=== PATIENT | male | born 1945 | race Caucasian/White ===

== ENCOUNTER → 2017-07-30 | Outpatient (CLI) | payer MEDICARE, OTHER ==
[~2017-07-30] MED LIST: AMIO200T51 PO; AMLO-99 PO; AMOX500T10 PO; CIPR-344 PO; FOLI-68 PO; HYDR-2963 PO; HYDR1TAB98 PO; LOSA50TA72 PO; METO200T12 PO; METO200T33 PO; NAPR-1043 PO; OLME1TAB73 PO; OXY10 PO; PRED20TA6 PO; RABE20TA33 PO; RIV10 PO; VITA-175 PO; VITAMIN B 12 PO; VITAMIN B 6 PO; WARF2.5T62 PO; WARF5TAB23 PO; [UNRECOGNIZED DRUG - OTHER] PO
== END ==
LOC: LAB 13:40
PROVIDERS: ATTEND Internal Medicine Cardiovascular Disease
DX: I48.91 Unspecified atrial fibrillation (principal)
CPT/HCPCS: 36415; 82040; 82247; 82248; 84075; 84155; 84439; 84443; 84450; 84460

== ENCOUNTER → 2017-08-05 | Outpatient (CLI) | payer MEDICARE, OTHER | LOC: RESP 03:03 | PROVIDERS: ATTEND Internal Medicine Cardiovascular Disease | DX: I48.91 Unspecified atrial fibrillation (principal) | CPT/HCPCS: 94060; 94726; 94729 ==

== ENCOUNTER → 2017-09-09 | Outpatient (CLI) | payer MEDICARE, OTHER | LOC: SPU 10:22 | PROVIDERS: ATTEND Internal Medicine Cardiovascular Disease | DX: R94.5 Abnormal results of liver function studies (principal); Z79.899 Other long term (current) drug therapy | CPT/HCPCS: 82040; 82247; 82248; 84075; 84155; 84450; 84460 ==

== ENCOUNTER 2017-09-11 08:20 | Outpatient (RCR) | payer MEDICARE, OTHER ==
[2017-09-09 10:20] VITALS: BP 124/87
[2017-09-09 10:38] LABS: PLATELET COUNT, AUTOMATED 243 K/uL (150-450)
[2017-09-11 08:27] VITALS: BP 151/82
--- NOTE | 2017-09-11 18:37 | ONCOLOGY FOLLOW UP NOTE ---
EVENT DATE: September 11, 2017 DIAGNOSES 1. 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 5. Rhus-like rash over the dorsum of the feet. 6. Atrial fibrillation. 7. Hypertension. CHIEF COMPLAINT Patient is here today for followup of his hypercoagulable state. HEMATOLOGY HISTORY Mr. Kirill Clancy is a 70-year-old male, who was diagnosed in February 2013 with cerebral central venous thrombosis, required thrombectomy which was done in [place] on 09 March 2014. Since then, the patient has been maintained on anticoagulation, initially with Lovenox and switched to Coumadin after that. He is currently on 2.5 mg daily of Coumadin, and as per the patient with a therapeutic INR. There is no documentation of thrombophilia workup, but there are some reports of the patient having a homozygous state from methylenetetrahydrofolate reductase mutation, and hyper-homocystinemia in the past, but he was not receiving any vitamin supplement to correct that. His CBC on 26 January 2014, showed white count 6500, hemoglobin 19, hematocrit 56.3%, platelet 220,000. Fibrinogen level was high at 683. Thrombin time, antithrombin 3 were normal. Factor VIII activity was mildly elevated at 255. Homocystine is high at 19. Erythropoietin was normal at 13. Methylenetetrahydrofolate reductase mutation did reveal the presence of compound heterozygous state for C677T and [id number] mutations. Serum protein electrophoresis was normal. Anticardiolipin antibodies, beta-2 lipoprotein antibodies and lupus anticoagulant were normal. Prothrombin gene mutation was negative and factor V Leiden mutation was also negative. Serum protein electrophoresis showed normal pattern. JAK2 mutation analysis for V617F and exon 12 mutations were negative. HISTORY OF PRESENT ILLNESS Patient is here today for followup of his hypercoagulable state and secondary erythrocytosis. He is doing fine currently, and he is totally asymptomatic. PAST MEDICAL HISTORY 1. Atrial fibrillation. 2. Cerebral central venous thrombosis status post thrombectomy February 2013. 3. Arthritis. 4. Gout. 5. Hypercholesterolemia. 6. Hypertension. PAST SURGICAL HISTORY 1. Knee replacement in October 2011. 2. Thrombectomy of the cerebral central venous thrombosis done on 09 March 2013. SOCIAL HISTORY The patient is . He has 2 daughters. He is a rancher. He was a [place] . Denies any abuse of tobacco or drugs. He never smoked in the past. FAMILY HISTORY Maternal grandmother had breast cancer at the age of 75. His sister had pulmonary embolism in her 50s. CURRENT MEDICATIONS 1. Vitamin B6 at 50 mg three times daily.. 2. Vitamin B12 at 1000 mcg daily. 3. Folic acid 5 mg daily. 4. Amiodarone 200 mg daily. 5. Warfarin 2.5 mg daily. 6. Metoprolol 200 mg once daily. 7. Losartan 50 mg daily. 8. Hydrochlorothiazide 50 mg daily. 9. Amlodipine 10 mg daily. ALLERGIES No known drug allergies. REVIEW OF SYSTEMS CONSTITUTIONAL: No appetite or weight change. No fever, chills or sweating. No recent infection. HEENT: Ears: No tinnitus or hearing problem. Nose: No nasal discharge or epistaxis. Throat: No sore throat or mouth ulcers. Eyes: No diplopia or visual changes. RESPIRATORY: No shortness of breath. No cough, expectoration or hemoptysis. CARDIOVASCULAR: No chest pain, orthopnea, or paroxysmal nocturnal dyspnea (PND) . No edema. No palpitations. GASTROINTESTINAL: No nausea or vomiting. No diarrhea or constipation. No change in bowel movements. No heartburn or swallowing difficulties. No abdominal pain. No jaundice. No hematemesis, melena or rectal bleeding. GENITOURINARY: No hematuria or dysuria. MUSCULOSKELETAL: No pain in the muscles, joints or bones. NEUROLOGICAL: No tingling or numbness in the hands or feet. No headaches or convulsions. HEMATOLOGIC/LYMPHATIC: No bleeding or easy bruising. No weakness or fatigue. No enlarged lymph nodes. SKIN: No skin rash or lumps. PSYCHIATRIC: No anxiety or depression. PHYSICAL EXAMINATION GENERAL: Looks stable. Well-developed, well-nourished, and in no acute distress. VITAL SIGNS: Blood pressure 151/82, pulse 63 per minute, respirations 16 per minute, temperature 97, pulse ox 92% on room air. HEENT: Head: Atraumatic. No sinus tenderness to palpation. Eyes: No icterus or conjunctivitis. Mouth and throat: No oral thrush or mucositis. NECK: Supple. No cervical or supraclavicular lymphadenopathy. LUNGS: Clear to auscultation and percussion bilaterally. HEART: Regular rate and rhythm. No gallops, murmurs, clicks or rubs. ABDOMEN: Soft and lax. No tenderness. No hepatosplenomegaly. No masses. EXTREMITIES: No cyanosis, clubbing or edema. LYMPHATICS: No peripheral lymphadenopathy. NEUROLOGICAL: Conscious, alert and oriented times three. No focal motor or sensory deficits. PSYCHIATRIC: Mood and affect appear normal. SKIN: No skin rash, bruise or purpuric eruption. DIAGNOSTIC DATA CBC showed a white count of 6.1 hemoglobin 18.4, hematocrit 52.4, platelets 243, 000. Homocysteine level is stable at 12. ASSESSMENT 1. Cerebral central venous thrombosis. Thrombophilia came back normal except for compound heterozygous state for methylenetetrahydrofolate reductase mutation with C677T and C3256R mutations. Homocysteine level was high at 19. With vitamin supplement it dropped from 19, and currently it is 12 with supplementation of folic acid, B6 and B12 vitamins. Patient is doing fine currently and he denies any recent blood clotting. 2. 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 Will continue vitamin supplementation with folic acid, B6 and B12. 3. Homocystinemia, responding to supplementation with folic acid, B6 and B12. His initial homocysteine level was 19, and currently it is 12. I am planning to continue folic acid 5 mg daily, vitamin B6 100 mg twice daily and vitamin B12 1000 mcg twice daily. I will check his homocysteine level again in six months. 4. Secondary erythrocytosis with negative JAK2 mutation for V617F mutation and Exon 12 mutation, and the erythropoietin level was normal at 13. Current hematocrit 52.4%. No indication for phlebotomy. I will proceed with phlebotomy if the hematocrit is above 55%. We will repeat his CBC in six months. 5. Atrial fibrillation on treatment. 6. Hypertension on treatment. PLAN 1. Folic acid 5 mg daily. 2. Vitamin B6 100 mg twice daily. 3. B12 1000 mcg daily. 4. Patient to return in six months with CBC and fasting homocysteine. 5. Consider phlebotomy if the hematocrit is above 55%. 6. Patient is to contact us for any new concerns or complaints. [facility]
== END 2017-10-15 13:16 | disposition home or self-care (01) ==
LOC: ONC 08:20
PROVIDERS: ATTEND Internal Medicine Hematology
DX: I66.8 Occlusion and stenosis of other cerebral arteries (principal); E72.12 Methylenetetrahydrofolate reductase deficiency; E72.11 Homocystinuria; D75.1 Secondary polycythemia; I48.91 Unspecified atrial fibrillation; I10 Essential (primary) hypertension; Z79.01 Long term (current) use of anticoagulants; Z79.899 Other long term (current) drug therapy
CPT/HCPCS: 36415; 83090; 85025; G0463; 99212

== ENCOUNTER 2018-06-07 13:24 | Emergency (ER) | payer MEDICARE, OTHER ==
[~2018-06-07 13:24] MED LIST changes: +AMLO-127 PO; -AMLO-99 PO; -LOSA50TA72 PO; +LOSA50TA80 PO
--- NOTE | 2018-06-07 13:33 | ER Report ---
History and Physical Time Seen By MD: 13:32 HPI/ROS CHIEF COMPLAINT: Left heel pain HISTORY OF PRESENT ILLNESS: Patient is a 73-year-old male here with complaints of left hip pain after tripping on a step several days ago. Patient denied pain at that time however he reports significant heel pain at this time. Patient is able to bear weight but does have pain with ambulation. Patient is neurovascularly intact with no obvious signs of deformity. REVIEW OF SYSTEMS: Constitutional: No fever, no chills. Musculoskeletal: Left heel pain Skin: No rashes. Neurological: Neurovascular exam intact Allergies: Coded Allergies: promethazine (Verified Adverse Reaction, Intermediate, Hallucinations, 06/07/18) pt reported Home Meds Active Scripts Tramadol Hcl (TRAMADOL HCL) 50 Mg Tablet, 50 MG PO Q6H PRN for PAIN, #12 TAB 0 Refills Prov:GEORGES STRONG DO 06/07/18 Folic Acid (FOLIC ACID) 1 Mg Tablet, 5 MG PO QDAY, #180 TAB 9 Refills Prov:DEBBY BELLO [employer]MENT SUPERVISOR-BC, ONC 02/14/17 Reported Medications Warfarin Sodium (WARFARIN SODIUM) 5 Mg Tablet, 1.25 MG PO RICE, M, W, TH, F, TAB 12/03/16 Warfarin Sodium (WARFARIN SODIUM) 5 Mg Tablet, 2.5 MG PO TUE, SAT, TAB 12/03/16 [Vitamin B 12] No Conflict Check, 1000 MG PO DAILY 02/29/16 [Vitamin B 6] No Conflict Check, 50 MG PO BID 02/29/16 Amiodarone Hcl (PACERONE) 200 Mg Tablet, 200 MG PO DAILY 03/11/14 Metoprolol Succ 200 Mg Xl Tab (METOPROLOL SUCCINATE 200 MG) 200 Mg Tab.er.24h, 1 TAB PO QDAY, TAB 03/11/14 Losartan Potassium (LOSARTAN POTASSIUM) 50 Mg Tablet, 50 MG PO QDAY 03/11/14 Hydrochlorothiazide (HYDROCHLOROTHIAZIDE) 50 Mg Tablet, 1 TAB PO QDAY TAKE ONE TABLET BY MOUTH EVERY DAY 03/11/14 Amlodipine Besylate (AMLODIPINE BESYLATE) 10 Mg Tablet, 1 TAB PO QDAY, TAB TAKE ONE TABLET BY MOUTH EVERY DAY 03/11/14 Discontinued Scripts Prednisone (PREDNISONE) 20 Mg Tablet, 20 MG PO BID, #14 TAB Prov:LETICIA TINOCO PA-C 12/03/16 Constitutional Vital Sign - Last 24 Hours 06/07/18 06/07/18 06/07/18 06/07/18 13:30 13:30 14:24 14:50 Temp 99.1 Pulse 65 63 62 Resp 16 18 B/P (MAP) 150/74 150/74 (99) 151/72 (98) Pulse Ox 83 93 94 O2 Delivery Room Air Nasal Cannula Physical Exam General Appearance: The patient is alert, has no immediate need for airway protection and no signs of toxicity. No acute distress Neurological: Neurovascular exam intact Skin: Warm and dry, no rashes. Mild ecchymosis of the left heel Musculoskeletal: Left heel ecchymosis and tenderness on examination with mild edema DIFFERENTIAL DIAGNOSIS: After history and physical exam differential diagnosis was considered for contusion, fracture, sprain, tendon injury Medical Decision Making EKG/Imaging Imaging Location: [facility] [place] Patient: Kirill Clancy : 1945 Visit/Account:[id number] Date of Sevice: 06/07/2018 INDICATION: left heel pain. DATE: 06/07/2018 2:09 PM. TECHNIQUE: ANKLE 3 VIEW MIN LEFT COMPARISON: None FINDINGS: Irregularity at the tip of the lateral malleolus appears well- corticated and probably as a result of an old injury, but there does appear to be mild circumferential edema at the ankle. IMPRESSION: Irregularity at the tip of the lateral malleolus is favored to be the sequelae of old injury, but correlate with site of pain. ED Course/Re-evaluation ED Course Patient is a 73-year-old male here after tripping up a step several days ago. Patient reports having increased left heel pain on ambulation. X-ray imaging showed no acute fracture at the site of maximum tenderness but rather a likely old fracture of the lateral malleolus. Ankle joint and foot were stable, neurovascular exam was intact. Patient was placed in a heel brace and Law wrap for stability and patient was advised to rest, ice, take [id number] analgesics and use crutches as needed. Patient was advised to follow-up with orthopedics if injury is not improving after one week. Return precautions provided Decision to Disposition Date: Jun 07, 2018 Decision to Disposition Time: 14:36 Depart Departure Latest Vital Signs Vital Signs Date Time Temp Pulse Resp B/P (MAP) Pulse Ox O2 Delivery O2 Flow Rate FiO2 06/07/18 14:50 62 18 151/72 (98) 94 Nasal Cannula 06/07/18 13:30 99.1 Impression: Primary Impression: PAIN IN LEFT ANKLE AND JOINTS OF LEFT FOOT Condition: Improved Disposition: HOME OR SELF-CARE Referrals: ROCIO CIFUENTES DO (PCP) New Scripts Tramadol Hcl (TRAMADOL HCL) 50 Mg Tablet 50 MG PO Q6H PRN for PAIN, #12 TAB 0 Refills Prov: GEORGES STRONG DO 06/07/18 Patient Instructions: Swollen Ankle Joint (ED) Additional Instructions: Please drink plenty of water. You may take Tylenol not to exceed 3 g daily, 1 tramadol every 6-8 hours as needed for breakthrough pain control. Please return promptly if you develop increased swelling, increased pain, redness around the site, fevers, inability to bear weight on the joint. Please follow-up with your family doctor in the next week. GEORGES STRONG DO Jun 07, 2018 13:33
--- NOTE | 2018-06-07 14:17 | RADIOLOGY IMAGING REPORT ---
FACILITY: [facility] - [place] PATIENT NAME: Kirill Clancy : 1945 MR: [id number] V: [id number] EXAM DATE: ORDERING PHYSICIAN: GEORGES STRONG TECHNOLOGIST: Location: [facility] - [place] Patient: Kirill Clancy : 1945 Visit/Account:[id number] Date of Sevice: 06/07/2018 INDICATION: left heel pain. DATE: 06/07/2018 2:09 PM. TECHNIQUE: ANKLE 3 VIEW MIN LEFT COMPARISON: None FINDINGS: Irregularity at the tip of the lateral malleolus appears well-corticated and probably as a result of an old injury, but there does appear to be mild circumferential edema at the ankle. IMPRESSION: Irregularity at the tip of the lateral malleolus is favored to be the sequelae of old injury, but cor relate with site of pain. Report Dictated By: Terry Arriola MD at 06/07/2018 2:09 PM Report E-Signed By: Terry Arriola MD at 06/07/2018 2:13 PM WSN:[id number]
[2018-06-07] MEDS ORDERED: TRAM-420 PO (14:38)
[2018-06-07 14:50] VITALS: BP 151/72
== END 2018-06-07 14:51 | disposition home or self-care (01) ==
LOC: ER 13:42
DX: M79.672 Pain in left foot (principal)
CPT/HCPCS: 99283

== ENCOUNTER → 2018-08-10 | Outpatient (CLI) | payer MEDICARE, OTHER ==
[~2018-08-10] MED LIST changes: +TRAM-420 PO
--- NOTE | 2018-08-10 13:58 | RADIOLOGY IMAGING REPORT ---
FACILITY: [facility] PATIENT NAME: Kirill Clancy : 1945 MR: [id number] V: [id number] EXAM DATE: ORDERING PHYSICIAN: NINOSKA ARIAS TECHNOLOGIST: Location: [facility] Patient: Kirill Clancy : 1945 Visit/Account:[id number] Date of Sevice: 08/10/2018 ADDENDUM #1 ADDENDUM: I discussed this case with the referring clinician. There is no ultrasound evidence of a parathyroid adenoma within the soft tissues surrounding the thyroid gland. Report Dictated By: Kamari Farrell at 08/10/2018 3:38 PM Report E-Signed By: Kamari Farrell at 08/10/2018 3:39 PM ORIGINAL REPORT EXAMINATION: Ultrasound thyroid HISTORY: Hyperparathyroidism. COMPARISON: None. FINDINGS: Thyroid size: Right lobe: 4.8 x 1.7 x 1.7 cm Left lobe: 4.4 x 1.4 x 2.2 cm Isthmus: 4 mm Thyroid heterogeneity: Homogeneous parenchyma. Thyroid vascularity: Normal. Thyroid nodules: Right lobe: * 6 mm x 4 mm x 5 mm hypoechoic nodule is seen superiorly * 8mm x 5 mm x 9 mm oval-shaped hypoechoic nodule is seen inferomedially Left lobe: * None discrete. Isthmus: * None discrete. Additional findings: None. IMPRESSION: 1. Subcentimeter hypoechoic right thyroid nodules. These do not meet current criteria for fine-need le aspiration according to the [place] [employer] Association guidelines. REFERENCE: 2015 [place] [employer] Management Guidelines for Adult Patients with Thyroid Nodules and D ifferentiated Thyroid Cancer: The [place] [employer] Guidelines Task Force on Thyroid Nodul es and Differentiated Thyroid Cancer. SONOGRAPHIC PATTERNS: * Benign: Purely cystic nodules (no solid component); estimated risk of malignancy <1 percent; no bi opsy recommended. * Very Low Suspicion: Spongiform or partially cystic nodules without any of the sonographic features described in low, intermediate, or high suspicion patterns; estimated risk of malignancy <3 percent; consider FNA at > 2 cm (Observation without FNA is also a reasonable option). * Low Suspicion: Isoechoic or hyperechoic solid nodule, or partially cystic nodule with eccentric so lid areas, without microcalcification, irregular margin or ETE (extra-thyroidal extension), or taller than wide shape; estimated risk of malignancy 5-10 percent; recommend FNA at >1.5 cm. * Intermediate Suspicion: Hypoechoic solid nodule with smooth margins without microcalcifications, E TE (extra-thyroidal extension), or taller than wide shape; estimated risk of malignancy 10-20 percent ; recommend FNA at > 1 cm. * High Suspicion: Solid hypoechoic nodule or solid hypoechoic component of a partially cystic nodule with one or more of the following features: irregular margins (infiltrative, microlobulated), microc alcifications, taller than wide shape, rim calcifications with small extrusive soft tissue component, evidence of ETE (extra-thyroidal extension); estimated risk of malignancy >70-90 percent; recommend FNA at > 1 cm. NOTES: * Although a sonographically suspicious subcentimeter thyroid nodule without evidence of extrathyroi juan extension or sonographically suspicious lymph nodes may be observed with close sonographic follow -up rather than pursuing immediate FNA, patient age and preference may modify decision-making. A > 50% interval increase in nodule volume and/or development of new suspicious sonographic features are felt to be a valid reasons for potential re-aspiration of a nodule previously shown to have benig n FNA cytology. Report Dictated By: Kamari Farrell at 08/10/2018 1:49 PM Report E-Signed By: Kamari Farrell at 08/10/2018 1:54 PM WSN:[id number]
== END ==
LOC: US 01:20
PROVIDERS: ATTEND Otolaryngology
DX: E04.2 Nontoxic multinodular goiter (principal)
CPT/HCPCS: 76536

== ENCOUNTER → 2018-08-11 | Outpatient (CLI) | payer MEDICARE, OTHER ==
--- NOTE | 2018-08-11 13:56 | RADIOLOGY IMAGING REPORT ---
FACILITY: [facility] - [place] PATIENT NAME: Kirill Clancy : 1945 MR: [id number] V: [id number] EXAM DATE: ORDERING PHYSICIAN: NINOSKA ARIAS TECHNOLOGIST: Location: [facility] - [place] Patient: Kirill Clancy : 1945 Visit/Account:[id number] Date of Sevice: 08/11/2018 Examination: Nuclear Medicine Parathyroid Scan Comparison: Ultrasound 08/10/2018. History: hyperparathyroidism Procedure: 25.1 mCi technetium 99m Sestamibi was injected intravenously. Multiplanar Gamma camera im ages were obtained of the head, neck and chest at 15 minutes and 3 hours following radiotracer admini stration with additional SPECT imaging at 3 hours. FINDINGS: 15 minute images: Physiologic tracer distribution throughout the salivary glands, thyroid, and visua lized thorax. Small focus of increased tracer activity in the midline neck at the level of the inferi or thyroid; this appears to be located anteriorly and is favored to be intravascular. Localization to a soft tissue nodule is considered less likely. 3 hour images: Normal physiologic tracer washout. No suspicious site of tracer activity. IMPRESSION: No scintigraphic findings of a parathyroid adenoma. Report Dictated By: Phil Vega MD at 08/11/2018 1:21 PM Report E-Signed By: Phil Vega MD at 08/11/2018 1:52 PM WSN:[id number]
== END ==
LOC: NUC 00:29
PROVIDERS: ATTEND Otolaryngology
DX: E21.3 Hyperparathyroidism, unspecified (principal)
CPT/HCPCS: 78070; A9500

== ENCOUNTER → 2018-09-01 | Outpatient (CLI) | payer MEDICARE, OTHER ==
[2018-09-01 12:45] LABS: PLATELET COUNT, AUTOMATED 262 K/uL (150-450)
--- NOTE | 2018-09-01 12:55 | EKG ---
FACILITY: [facility] - [place] PATIENT NAME: MERON GROSS : [id number] MR: [id number] V: [id number] EXAM DATE: ORDERING PHYSICIAN: NINOSKA ARIAS TECHNOLOGIST: Test Reason : Pre-op Blood Pressure : / mmHG Vent. Rate : 053 BPM Atrial Rate : 053 BPM P-R Int : 182 ms QRS Dur : 102 ms QT Int : 480 ms P-R-T Axes : 018 066 056 degrees QTc Int : 450 ms Sinus bradycardia Otherwise normal ECG No previous ECGs available Confirmed by NEGIN JAVIER ([id number]) on 09/01/2018 4:26:58 PM Referred By: Confirmed By:NEGIN JAVIER
== END ==
LOC: LAB 12:11
PROVIDERS: ATTEND Otolaryngology
DX: I48.91 Unspecified atrial fibrillation (principal); G47.30 Sleep apnea, unspecified; I10 Essential (primary) hypertension
CPT/HCPCS: 36415; 82310; 82374; 82435; 82565; 82947; 84132; 84295; 84520; 85025; 93005

== ENCOUNTER 2018-09-21 02:39 | Observation (INO) | payer MEDICARE, OTHER ==
[~2018-09-21] VITALS: Ht 180.3 cm; Wt 127.5 kg
[2018-09-21] VITALS (18 sets, daily range): BP systolic 114–166; BP diastolic 62–95
[~2018-09-21 02:39] MED LIST changes: +ENO150PT SQ
[2018-09-21] MEDS ORDERED: KETAMINE HCL 200 MG/20 ML MDV ONE (10:54)
[2018-09-21] MEDS ORDERED: ONDANSETRON 4 MG/2 ML VIAL ONE (10:56)
[2018-09-21] MEDS ORDERED: DEXAMETHASONE SOD PHOS 10MG/ML ONE (10:56)
[2018-09-21] MEDS ORDERED: LIDOCAINE MPF 1% 5 ML VIAL ONE (10:56)
[2018-09-21] MEDS ORDERED: PROPOFOL EMUL(*) 10MG/ML 20 ML 20 ML ONE (10:56)
[2018-09-21] MEDS ORDERED: LIDOCAINE/SOD BICARB 8.4% SYR ID ONE (11:00)
[2018-09-21] MEDS ORDERED: NORMOSOL R SOLN(*) 1000 ML BAG 1,000 ML IV PRN (11:00)
[2018-09-21] MEDS ORDERED: FAMOTIDINE 20 MG TAB PO ONE (11:00)
[2018-09-21] MEDS ORDERED: MIDAZOLAM 2 MG/2 ML VIAL IVP PRN (11:00)
[2018-09-21] MEDS ORDERED: NS 0.9% 20 ML SDV 20 ML ONE ×2 (11:09→13:51)
[2018-09-21] MEDS ORDERED: REMIFENTANIL HCL 1 MG VIAL ONE ×4 (11:15→15:45)
[2018-09-21] MEDS ORDERED: ceFAZolin(*) 2GM/D5W 50ML 50 ML IVPB ONE (12:10)
[2018-09-21] MEDS ORDERED: fentaNYL CITR 250 MCG/5 ML AMP ONE (12:24)
[2018-09-21] MEDS ORDERED: LIDO/EPI 1% MDV 1:100,000 20ML INFIL ONE (12:44)
[2018-09-21] MEDS ORDERED: GLYCOPYRROLATE 0.2MG/ML 1 ML INJ ONE (12:50)
[2018-09-21 12:54] LABS: INR 1.04
[2018-09-21] MEDS ORDERED: ePHEDrine 25 MG/5 ML DISP.SYR IVP ONE (12:58)
[2018-09-21] MEDS ORDERED: LR(*) 1000 ML BAG 1,000 ML IV PRN (17:18)
[2018-09-21] MEDS ORDERED: ONDANSETRON 4 MG ODT TABDP SL PRN (17:20)
[2018-09-21] MEDS ORDERED: oxyCODON/ACET (*)5/325MG (CII) 1 TAB TAB PO PRN (17:20)
[2018-09-21] MEDS ORDERED: APAP/HYDROCODONE 325/5 TAB PO PRN (17:20)
[2018-09-21] MEDS ORDERED: ACETAMINOPHEN 325 MG TAB PO PRN (17:20)
--- NOTE | 2018-09-21 17:26 | Post Operative Note ---
Operative Note - ENT Operative Day Date: September 21, 2018 Physicians Surgeon: Denis Director Of Pediatric Rehabilitation: Augustine Sandy Anesthesia: GETA Diagnosis Pre-Op Diagnosis: hyperparathyroidism Post-Op Diagnosis: same Procedure Findings: see dictated note Procedure(s): parathyroidectomy Specimen Removed:(Maybe N/A): right inferior parathyroid, left superior parathyroid, left inferior paratracheal mass Complications: none Fluids Fluids: see anesthesia note Estimated Blood Loss: 100 ml NINOSKA ARIAS JR, MD September 21, 2018 17:26
[2018-09-21] MEDS ORDERED: ALBUTEROL/IPRATROPIUM 3 ML NEB ONE (18:30)
[2018-09-21] MEDS: ceFAZolin(*) 1 GM VIAL 1 GM in NS(*) 0.9% 100 ML MINI-BAG 100 ML IVPB SCH (21:19)
[2018-09-22 00:30] VITALS: BP 126/67
[2018-09-22 01:00] VITALS: BP 127/67
[2018-09-22 03:17] VITALS: BP 128/86
[2018-09-22] MEDS: ceFAZolin(*) 1 GM VIAL 1 GM in NS(*) 0.9% 100 ML MINI-BAG 100 ML IVPB SCH (05:33)
[2018-09-22 06:51] VITALS: BP 136/69
[2018-09-22] MEDS ORDERED: IOPAMIDOL 76% 150 ML INFUS BTL 150 ML ONE (08:40)
[2018-09-22] MEDS ORDERED: LOSARTAN POTASSIUM 50 MG TAB PO SCH (09:00)
[2018-09-22] MEDS ORDERED: METOPROLOL SUCC XL 50 MG TABCR 50 MG TAB.ER.24H PO SCH (09:00)
[2018-09-22] MEDS ORDERED: HYDROCHLOROTHIAZIDE 25 MG TAB PO SCH (09:00)
[2018-09-22] MEDS ORDERED: AMIODARONE 200 MG TAB PO SCH (09:00)
[2018-09-22] MEDS ORDERED: amLODIPine BESYL(*) 5 MG TAB PO SCH (09:00)
[2018-09-22] MEDS ORDERED: CEFU500T10 PO (12:19)
[2018-09-22] MEDS ORDERED: LOR5/325 PO (12:19)
--- NOTE | 2018-09-22 12:22 | Short(Outpt) Discharge Summary ---
Discharge Summary Reason for Hosp/Final Diag: (1) Hyperparathyroidism Status: Chronic Hospital Course & Plan: Underwent parathyroid exploration on day of admission. Persistent elevated PTH but normal calcium. Pain controlled. Georges reg diet. Departure Discharge to: Home Discharge Instructions Home Meds Active Scripts Hydrocodone Bit/Acetaminophen (HYDROCODON-ACETAMINOPHEN 5-325) 1 Each Tablet, 1 EACH PO Q4H PRN for MILD TO MODERATE PAIN for 7 Days, #15 TAB Prov:NINOSKA ARIAS JR, MD 09/22/18 Folic Acid (FOLIC ACID) 1 Mg Tablet, 5 MG PO QDAY, #180 TAB 9 Refills Prov:DEBBY BELLO GINSENG FARMER-BC, ONC 02/14/17 Reported Medications Warfarin Sodium (WARFARIN SODIUM) 5 Mg Tablet, 1.25 MG PO RICE, M, W, TH, F, TAB 12/03/16 Warfarin Sodium (WARFARIN SODIUM) 5 Mg Tablet, 2.5 MG PO TUE, SAT, TAB 12/03/16 [Vitamin B 12] No Conflict Check, 1000 MG PO DAILY 02/29/16 [Vitamin B 6] No Conflict Check, 50 MG PO BID 02/29/16 Amiodarone Hcl (PACERONE) 200 Mg Tablet, 200 MG PO DAILY 03/11/14 Metoprolol Succ 200 Mg Xl Tab (METOPROLOL SUCCINATE 200 MG) 200 Mg Tab.er.24h, 1 TAB PO QDAY, TAB 03/11/14 Losartan Potassium (LOSARTAN POTASSIUM) 50 Mg Tablet, 50 MG PO QDAY 03/11/14 Hydrochlorothiazide (HYDROCHLOROTHIAZIDE) 50 Mg Tablet, 1 TAB PO QDAY TAKE ONE TABLET BY MOUTH EVERY DAY 03/11/14 Amlodipine Besylate (AMLODIPINE BESYLATE) 10 Mg Tablet, 1 TAB PO QDAY, TAB TAKE ONE TABLET BY MOUTH EVERY DAY 03/11/14 Discontinued Reported Medications Enoxaparin Sodium (LOVENOX) 150 Mg/Ml Soln, 150 MG SQ BID for 4 Days 09/15/18 Diet: Regular Activity: No Heavy Lifting, No Exertion Special Instructions: May shower. Do not soak steris. Patient to have PTH drawn at [facility] lab today. Home with 3L oxygen. Will call patient and arrange follow up based upon labs, path and CT results. Hold Warfarin until instructed to resume. NINOSKA ARIAS JR, MD September 22, 2018 12:22
--- NOTE | 2018-09-22 13:11 | RADIOLOGY IMAGING REPORT ---
FACILITY: [facility] - [place], [place] PATIENT NAME: Kirill Clancy : 1945 MR: [id number] V: [id number] EXAM DATE: ORDERING PHYSICIAN: NINOSKA ARIAS TECHNOLOGIST: [place] [facility] [place]ill Cl[place] : 1945 Visit/Account:[id number] Date of Sevice: 09/21/2018 Study: CT scan of the neck with intravenous contrast Indication: Ectopic parathyroid gland Contrast utilized:75 mL Isovue 370 Technique: Multiple axial images were obtained through the neck following the intravenous administrat ion of iodinated contrast. Coronal and sagittal two-dimensional reconstructions were made from the original data set. One of the following dose optimization techniques was utilized in the performance of this exam: Autom ated exposure control; adjustment of the mA and/or kV according to the patient's size; or use of an i terative reconstruction technique. Specific details can be referenced in the facility's radiology C T exam operational policy. The examination demonstrates the presence of induration of the soft tissues around the thyroid. The p atient is status post recent surgery in this area. The thyroid gland is unremarkable in appearance. There is no evidence of an ectopic parathyroid gland within the neck. The visualized vascular structures are unremarkable. The parotid and submandibular glands are unremar kable in appearance. There is medial deviation of the right true vocal cord. IMPRESSION: No evidence of ectopic parathyroid gland within the neck. Report Dictated By: Cristian Sheriff at 09/22/2018 11:42 AM Report E-Signed By: Cristian Sheriff at 09/22/2018 1:05 PM WSN:[id number]
--- NOTE | 2018-09-22 14:08 | RADIOLOGY IMAGING REPORT ---
FACILITY: [facility] - [place], [place] PATIENT NAME: Kirill Clancy : 1945 MR: [id number] V: [id number] EXAM DATE: ORDERING PHYSICIAN: NINOSKA ARIAS TECHNOLOGIST: [facility] Patient: Kirill Clancy : 1945 Visit/Account:[id number] Date of Sevice: 09/21/2018 Study: CT scan of the chest with intravenous contrast Indication: Hyperparathyroidism. Rule out ectopic parathyroid gland Comparison study: None Contrast used: 75 mL Isovue-370 Technique: Multiple axial images were obtained through the chest following intravenous administratio n of iodinated contrast. Coronal and sagittal two-dimensional reconstructions were made from the [facility] inal data set. One of the following dose optimization techniques was utilized in the performance of this exam: Autom ated exposure control; adjustment of the mA and/or kV according to the patient's size; or use of an i terative reconstruction technique. Specific details can be referenced in the facility's radiology C T exam operational policy. Findings: Mediastinum: Within the anterior mediastinum anterior to the left brachiocephalic vein, there is a 1. 2 cm nodule that enhances more strongly than the other visualized lymph nodes. This finding is the be st candidate seen on this study for an ectopic parathyroid gland. There is a 1.9 cm lymph node present in the right paratracheal region. There is stranding of the fat within the posterior mediastinum surrounding the esophagus. This likely represents edema tracking down from the patient's recent neck surgery. Lung parenchyma: Unremarkable Chest wall: No evidence of significant abnormality. Visualized upper abdomen: Unremarkable. IMPRESSION: 1.2 cm strongly enhancing nodule present anterior to the left brachiocephalic vein within the anterior mediastinum. This is the best candidate for an ectopic parathyroid gland seen on this e xam. Report Dictated By: Cristian Sheriff at 09/22/2018 1:06 PM Report E-Signed By: Cristian Sheriff at 09/22/2018 2:05 PM WSN:[id number]
--- NOTE | 2018-09-25 09:39 | OPERATIVE REPORT 1 ---
EVENT DATE: September 21, 2018 SURGEON: Miguel Angel Barrios MD ANESTHESIOLOGIST: Neal Canales MD ANESTHESIA: General endotracheal. AIRLINE RADIO OPERATOR: Lois Sandy, PRODUCE PRODUCTION TEAM MEMBER, CSFA PREOPERATIVE DIAGNOSIS Hyperparathyroidism. POSTOPERATIVE DIAGNOSIS Hyperparathyroidism. PROCEDURE PERFORMED Parathyroidectomy. DESCRIPTION OF PROCEDURE The patient was positively identified in the preoperative area. He was accompanied there by his and daughter. Risks were again explained, including but not limited to, bleeding, infection, injury to the recurrent laryngeal nerve, transient or permanent dysphonia, persistent hyperparathyroidism, hypoparathyroidism and those associated with anesthesia. He acknowledged understanding those risks. He was then brought back to the operative suite, laid supine on the operative table and anesthesia was administered. Of note, the laryngeal nerve monitor was applied to the patient and utilized throughout the case. The patient was then prepped and draped in usual sterile fashion. A 5 cm incision was planned in a favorable neck crease overlying the thyroid gland. This was infiltrated with approximately 2 cc of 1% lidocaine with epinephrine. The aforementioned incision was then made with a #15 and the underlying subcutaneous tissue was then dissected with Bovie electrocautery. The platysmal muscle was identified and divided with Bovie electrocautery. Subplatysmal flaps were elevated superiorly to the level of the thyroid notch and inferiorly to the level of the sternal notch. The strap musculature was then divided along the medial raphe. I then elevated the strap musculature off the right thyroid lobe and then carefully dissected the lobe from the surrounding connective tissue and carefully medialized it with an Allis clamp. I then explored the surrounding area for parathyroid glands. An enlarged right parathyroid gland was identified in the inferior region. I did not find the second gland on this side. I then proceeded with a contralateral dissection. The strap musculature was elevated off the thyroid lobe. The thyroid lobe was grasped with an Allis forceps and I carefully dissected the surrounding region for parathyroid gland. A parathyroid was identified in the superior region. A possible gland was identified in the thymic fat on the left. The enlarged gland on the right was first removed. There was no noted parathyroid hormone drop. Therefore, the glands on the left were sequentially removed with a presumptive diagnosis of multiple gland hyperplasia. The parathyroid hormone did not drop after removal of these two lesions either. At this juncture, I favored the diagnosis of an atypical location of an unidentified parathyroid adenoma and closed the patient. The wound was copiously irrigated with normal saline solution. The strap musculature and platysma were then closed with interrupted Chromic suture. The skin was then closed in multi-layer fashion. The patient was then turned to Anesthesia for emergence. ESTIMATED BLOOD LOSS 25 cc. COMPLICATIONS None. MTDD
[2018-09-29] MEDS ORDERED: TAMS0.4C25 PO (08:58)
[2018-10-02] MEDS ORDERED: AMOX-559 PO (13:32)
== END 2018-09-22 14:00 | disposition home or self-care (01) ==
LOC: OR 02:39 → MED 18:30 → INTOOBSV 18:30
PROVIDERS: ADMIT Otolaryngology; ATTEND Otolaryngology
DX: E21.3 Hyperparathyroidism, unspecified (principal); I10 Essential (primary) hypertension; I48.91 Unspecified atrial fibrillation; G47.30 Sleep apnea, unspecified; Z86.73 Personal history of transient ischemic attack (TIA), and cerebral infarction without residual deficits; K21.9 Gastro-esophageal reflux disease without esophagitis
CPT/HCPCS: 36415; 60500; 70491; 71260; 83970; 85610; 94640; A9270; G0378; J0690; J1100; J2001; J2405; J2704; J3010; J3490; J7050; J7620; Q9967; 82310; 82374; 82435; 82565; 82947; 84132; 84295; 84520

== ENCOUNTER 2018-09-23 16:12 | Emergency (ER) | payer MEDICARE, OTHER ==
[~2018-09-23 16:12] MED LIST changes: +CEFU500T10 PO; +LOR5/325 PO
--- NOTE | 2018-09-23 16:29 | ER Report ---
History and Physical Time Seen By MD: 16:26 HPI/ROS CHIEF COMPLAINT: Urinary retention HISTORY OF PRESENT ILLNESS: Patient is a 73-year-old male comes emergency Department today with a complaint of urinary retention. Patient had a parathyroidectomy done about 3-4 days ago and subsequently was urinated before he left the hospital yesterday however has not urinated all day today complaining of suprapubic pain and tenderness and some swelling otherwise no filling fever chills or sweats or other complaints noted REVIEW OF SYSTEMS: Respiratory: No cough, no dyspnea. Cardiovascular: No chest pain, no palpitations. Gastrointestinal: No vomiting, no abdominal pain. Musculoskeletal: No back pain. Remainder of the 14 system rev: Yes Allergies: Coded Allergies: promethazine (Verified Adverse Reaction, Intermediate, Hallucinations, 09/23/18) pt reported Home Meds Active Scripts Cefuroxime Axetil (CEFUROXIME) 500 Mg Tablet, 500 MG PO BID, #20 TAB Prov:NINOSKA ARIAS JR, MD 09/22/18 Hydrocodone Bit/Acetaminophen (HYDROCODON-ACETAMINOPHEN 5-325) 1 Each Tablet, 1 EACH PO Q4H PRN for MILD TO MODERATE PAIN for 7 Days, #15 TAB Prov:NINOSKA ARIAS JR, MD 09/22/18 Folic Acid (FOLIC ACID) 1 Mg Tablet, 5 MG PO QDAY, #180 TAB 9 Refills Prov:DEBBY BELLO YIELD IMPROVEMENT ENGINEER-BC, ONC 02/14/17 Reported Medications [Vitamin B 12] No Conflict Check, 1000 MG PO DAILY 02/29/16 [Vitamin B 6] No Conflict Check, 50 MG PO BID 02/29/16 Amiodarone Hcl (PACERONE) 200 Mg Tablet, 200 MG PO DAILY 03/11/14 Metoprolol Succ 200 Mg Xl Tab (METOPROLOL SUCCINATE 200 MG) 200 Mg Tab.er.24h, 1 TAB PO QDAY, TAB 03/11/14 Losartan Potassium (LOSARTAN POTASSIUM) 50 Mg Tablet, 50 MG PO QDAY 03/11/14 Hydrochlorothiazide (HYDROCHLOROTHIAZIDE) 50 Mg Tablet, 1 TAB PO QDAY TAKE ONE TABLET BY MOUTH EVERY DAY 03/11/14 Amlodipine Besylate (AMLODIPINE BESYLATE) 10 Mg Tablet, 1 TAB PO QDAY, TAB TAKE ONE TABLET BY MOUTH EVERY DAY 03/11/14 Discontinued Reported Medications Warfarin Sodium (WARFARIN SODIUM) 5 Mg Tablet, 1.25 MG PO RICE, M, W, TH, F, TAB 12/03/16 Warfarin Sodium (WARFARIN SODIUM) 5 Mg Tablet, 2.5 MG PO TUE, SAT, TAB 12/03/16 Enoxaparin Sodium (LOVENOX) 150 Mg/Ml Soln, 150 MG SQ BID for 4 Days 09/15/18 Reviewed Nurses Notes: Yes Old Medical Records Reviewed: Yes Hx Smoking: No Smoking Status: Never Smoker Exposure to Second Hand Smoke?: Yes (PLAYED IN [employer] FOR 20 YEARS) Hx Alcohol Use: Yes (QUIT ) Constitutional Vital Sign - Last 24 Hours 09/23/18 16:26 Temp 97.8 Pulse 60 Resp 22 B/P (MAP) 137/85 Pulse Ox 92 O2 Delivery Room Air Physical Exam General Appearance: [The patient is alert, has no immediate need for airway protection and no current signs of toxicity.] [ ] Eyes: Pupils equal and round no injection. Respiratory: Chest is non tender, lungs are clear to auscultation. Cardiac: regular rate and rhythm [ ] Gastrointestinal: Suprapubic distention noted tenderness to palpation Musculoskeletal: Neck: Neck is supple and non tender. Extremities have full range of motion and are non tender. Skin: No rashes or lesions. [ ] DIFFERENTIAL DIAGNOSIS: After history and physical exam differential diagnosis was considered for urinary retention Medical Decision Making Data Points Laboratory Hematology Test 09/23/18 16:25 Urine Color Straw Urine Clarity Clear Urine pH 7.0 pH (4.8-9.5) Urine Specific [place] 1.009 Urine Protein Negative mg/dL (NEGATIVE) Urine Glucose (UA) Negative mg/dL (NEGATIVE) Urine Ketones Negative mg/dL (NEGATIVE) Urine Blood Negative (NEGATIVE) Urine Nitrite Negative (NEGATIVE) Urine Bilirubin Negative (NEGATIVE) Urine Urobilinogen Negative mg/dL (0.2-1.9) Urine Leukocyte Esterase Negative (NEGATIVE) Urine RBC <1 /HPF (0-2/HPF) Urine WBC 1 /HPF (0-5/HPF) Urine Squamous Epithelial Cells None /LPF (NONE-FEW) Urine Bacteria Negative /HPF (NONE-FEW) Urine Mucus None /HPF (NONE-FEW) Chemistry Test 09/23/18 16:25 Urine Color Straw Urine Clarity Clear Urine pH 7.0 pH (4.8-9.5) Urine Specific [place] 1.009 Urine Protein Negative mg/dL (NEGATIVE) Urine Glucose (UA) Negative mg/dL (NEGATIVE) Urine Ketones Negative mg/dL (NEGATIVE) Urine Blood Negative (NEGATIVE) Urine Nitrite Negative (NEGATIVE) Urine Bilirubin Negative (NEGATIVE) Urine Urobilinogen Negative mg/dL (0.2-1.9) Urine Leukocyte Esterase Negative (NEGATIVE) Urine RBC <1 /HPF (0-2/HPF) Urine WBC 1 /HPF (0-5/HPF) Urine Squamous Epithelial Cells None /LPF (NONE-FEW) Urine Bacteria Negative /HPF (NONE-FEW) Urine Mucus None /HPF (NONE-FEW) Urinalysis Test 09/23/18 16:25 Urine Color Straw Urine Clarity Clear Urine pH 7.0 pH (4.8-9.5) Urine Specific [place] 1.009 Urine Protein Negative mg/dL (NEGATIVE) Urine Glucose (UA) Negative mg/dL (NEGATIVE) Urine Ketones Negative mg/dL (NEGATIVE) Urine Blood Negative (NEGATIVE) Urine Nitrite Negative (NEGATIVE) Urine Bilirubin Negative (NEGATIVE) Urine Urobilinogen Negative mg/dL (0.2-1.9) Urine Leukocyte Esterase Negative (NEGATIVE) Urine RBC <1 /HPF (0-2/HPF) Urine WBC 1 /HPF (0-5/HPF) Urine Squamous Epithelial Cells None /LPF (NONE-FEW) Urine Bacteria Negative /HPF (NONE-FEW) Urine Mucus None /HPF (NONE-FEW) ED Course/Re-evaluation ED Course ED course and we'll mail several days postop unable to urinate today full and leg bag was placed good evacuation the bladder urine shows no sign of infection leg bag will remain follow-up thereafter tomorrow with primary physician Decision to Disposition Date: September 23, 2018 Decision to Disposition Time: 17:16 Depart Departure Latest Vital Signs Vital Signs Date Time Temp Pulse Resp B/P (MAP) Pulse Ox O2 Delivery O2 Flow Rate FiO2 09/23/18 16:26 97.8 60 22 137/85 92 Room Air Impression: Primary Impression: Urinary retention Condition: Improved Disposition: HOME OR SELF-CARE Referrals: ROCIO CIFUENTES DO (PCP) 2 Days Patient Instructions: Urinary Leg Bag (GEN), Urinary Retention in Men (ED) ELISA LAGUNAS MD September 23, 2018 16:28
[2018-09-23 17:15] VITALS: BP 144/76
== END 2018-09-23 17:47 | disposition home or self-care (01) ==
LOC: ER 16:29
DX: R33.9 Retention of urine, unspecified (principal)
CPT/HCPCS: 81001; 99282

== ENCOUNTER 2018-09-25 02:09 | Observation (INO) | payer MEDICARE, OTHER ==
[2018-09-25] VITALS (11 sets, daily range): BP systolic 121–166; BP diastolic 72–102
[~2018-09-25] VITALS: Ht 180.3 cm; Wt 128.5 kg
[2018-09-25] MEDS ORDERED: NORMOSOL R SOLN(*) 1000 ML BAG 1,000 ML IV PRN (13:40)
[2018-09-25] MEDS ORDERED: MIDAZOLAM 2 MG/2 ML VIAL IVP PRN (13:40)
[2018-09-25] MEDS ORDERED: FAMOTIDINE 20 MG TAB PO ONE (13:40)
[2018-09-25] MEDS ORDERED: LIDOCAINE/SOD BICARB 8.4% SYR ID ONE (13:40)
[2018-09-25] MEDS ORDERED: DEXAMETHASONE SOD PHOS 10MG/ML ONE (13:58)
[2018-09-25] MEDS ORDERED: ONDANSETRON 4 MG/2 ML VIAL ONE (13:58)
[2018-09-25] MEDS ORDERED: SUCCINYLCHOL CHL 200MG/10ML VL ONE (13:58)
[2018-09-25] MEDS ORDERED: PROPOFOL EMUL(*) 10MG/ML 20 ML 20 ML ONE (13:58)
[2018-09-25] MEDS ORDERED: LR(*) 1000 ML BAG 1,000 ML IV PRN (14:47)
[2018-09-25] MEDS ORDERED: MORPHINE 2 MG/ML SYR IVP PRN (14:50)
[2018-09-25] MEDS ORDERED: APAP/HYDROCODONE 325/5 TAB PO PRN (14:50)
[2018-09-25] MEDS ORDERED: ONDANSETRON 4 MG ODT TABDP SL PRN (14:50)
[2018-09-25] MEDS ORDERED: ACETAMINOPHEN 325 MG TAB PO PRN (14:50)
[2018-09-25] MEDS ORDERED: LIDO/EPI 1% MDV 1:100,000 20ML INFIL ONE (14:56)
[2018-09-25] MEDS ORDERED: fentaNYL CITR 100 MCG/2 ML AMP ONE ×2 (15:22→15:33)
[2018-09-25] MEDS ORDERED: ceFAZolin(*) 2GM/D5W 50ML 50 ML IVPB SCH (17:00)
[2018-09-25] MEDS ORDERED: BACITRACIN/POLYMY B OINT 15 GM TP ONE (17:17)
[2018-09-25] MEDS ORDERED: BACITRACIN OINT 15 GM TUBE TP ONE (17:19)
--- NOTE | 2018-09-25 18:07 | Post Operative Note ---
Operative Note - ENT Operative Day Date: September 25, 2018 Physicians Surgeon: Denis Administrative Sales Assistant: Augustine Anesthesia: GETA Diagnosis Pre-Op Diagnosis: 1. hyperparathyroidism 2. right vocal fold paresis Post-Op Diagnosis: same Procedure Findings: see dictated note Procedure(s): 1. left inferior parathyroidectomy 2. right vocal fold injection medialization 3. autotransplantation parathyroid left bracheoradialis muscle Specimen Removed:(Maybe N/A): left inferior parathyroid gland Complications: none Fluids Fluids: see anesthesia note Estimated Blood Loss: 25 ml NINOSKA ARIAS JR, MD September 25, 2018 18:07
[2018-09-25] MEDS: CALCITRIOL 0.5 MCG CAPSULE PO SCH ×2 (21:00→23:32)
[2018-09-25] MEDS: CALCIUM CARBONATE 500 MG CHEW CHEW SCH ×2 (21:00→23:31)
--- NOTE | 2018-09-25 21:30 | OPERATIVE REPORT 1 ---
EVENT DATE: September 25, 2018 SURGEON: Miguel Angel Barrios MD ANESTHESIOLOGIST: Kirill Greene MD ANESTHESIA: General endotracheal. AGRICULTURAL EQUIPMENT TEST ENGINEER: Jag Bradshaw MD PROCEDURES PERFORMED 1. Left inferior parathyroidectomy. 2. Direct laryngoscopy and Injection medialization of right vocal fold. PREOPERATIVE DIAGNOSES 1. Hyperparathyroidism. 2. Right vocal fold paresis. POSTOPERATIVE DIAGNOSES 1. Hyperparathyroidism. 2. Right vocal fold paresis. INDICATIONS Per the preoperative note. DESCRIPTION OF PROCEDURE The patient was positively identified in the preoperative area. He was accompanied there by his and daughter. Risks again explained included, but were not limited to bleeding, infection, injury to the recurrent laryngeal nerve, transient or permanent dysphonia, persistent hyperparathyroidism, hypoparathyroidism, and those associated with anesthesia. He acknowledged understanding of those risks. He was then brought back to the operative suite, placed supine on the operating table, and anesthesia was administered. Once asleep, patient was positioned and then prepped and draped in the usual sterile fashion. Of note, the laryngeal nerve monitor was applied to the patient and utilized throughout the case. The patient's previous incision was opened. The sutures were removed holding the platysma and the strap musculature together. Preoperative imaging was consistent with an enlarged parathyroid gland substernal just left of the midline. The previously mobilized left thyroid lobe was grasped with a Jackson and rotated medially. The strap musculature was retracted laterally. We then carefully dissected in the left substernal area. The brachiocephalic vein was identified. Just superficial to this in the fat deposit, a mass consistent with a large parathyroid adenoma was identified. Intraoperative parathyroid hormone level dropped from 167 to 23. The wound was irrigated with normal saline. The strap musculature and platysma were reapproximated with interrupted chromic suture. The skin was closed in a multilayer fashion. Given that the patient had two previous parathyroid glands removed, and significant dissection was performed on the contralateral side with possible devascularization of the patient's remaining parathyroid gland, we opted to perform autotransplantation of a small piece of the gland. For details of this, please refer to the operative note dictated by Dr. Bradshaw. As this was completed, we proceeded with a direct laryngoscopy and injection medialization of the right vocal fold. The patient's upper gums were protected with a 4 x 4 gauze. A Dedo direct laryngoscope was carefully introduced into the patient's oral cavity and advanced to the level of the larynx. The right vocal fold was visualized. 0.6 mL of Prolaryn gel was injected just lateral to the vocal process. The patient was then turned to Anesthesia for emergence. Estimated blood loss was 25 mL. There were no complications. MTDD
--- NOTE | 2018-09-25 22:37 | OPERATIVE REPORT 1 ---
EVENT DATE: September 25, 2018 SURGEON: Jag Bradshaw MD ANESTHESIOLOGIST: Kirill Greene MD ANESTHESIA: General endotracheal anesthesia. GREIGE MENDER: Miguel Angel Barrios MD PREOPERATIVE DIAGNOSES 1. Hyperparathyroidism. 2. Mediastinal parathyroid adenoma. POSTOPERATIVE DIAGNOSES 1. Hyperparathyroidism. 2. Mediastinal parathyroid adenoma. PROCEDURES PERFORMED 1. Anterior mediastinal exploration with removal of a parathyroid adenoma. This was performed primarily by Dr. Barrios and assisted by Dr. Bradshaw. 2. Implantation of parathyroid tissue into left brachioradialis muscle and performed primarily by Dr. Bradshaw and assisted by Dr. Barrios. SPECIMENS Parathyroid adenoma. INDICATIONS This is a 73-year-old gentleman who Dr. Barrios had operated on earlier this week for hyperparathyroidism, but he was not able to find the parathyroid adenoma because it was not in the usual position within the neck and appeared to be ectopic. He stopped the procedure after several hours of exploration and obtained a CT scan of the patient's chest where the adenoma was identified, so he scheduled the patient for re-operation and asked for my assistance. DESCRIPTION OF PROCEDURE Patient was brought to the operating room and placed upon the operating table. General endotracheal anesthesia was administered, and the patient's neck was prepped and draped in a sterile fashion. Timeout was completed, and Dr. Barrios reopened the patient's Juan collar incision and went right down through into the previous operative space, which was still fairly fresh since the surgery was just a few days ago. We then immediately turned our attention to the anterior mediastinum and started dissecting and identifying the innominate vein and removed multiple pieces of mediastinal tissue anterior to the innominate vein that corresponded to the approximate location of the lesion on the CT. Dr. Barrios and I performed this dissection together, and then ultimately Dr. Barrios was able to locate the adenoma and removed it and passed it off the field with resulting drop in rapid PTH in the operating room. He then closed the neck wound in multiple layers. Please refer to his dictation for details about this portion of the surgery. After the wound was closed and bacitracin antibiotic ointment was applied to the incision, the patient's left forearm was prepped and draped in a sterile fashion, and skin overlying the brachioradialis belly was anesthetized with 1% lidocaine. A 2 cm incision was made longitudinally and dissection carried down through the dermis and into the subcutaneous tissues and then through the muscle fascia to the brachioradialis muscle. Dr. Barrios harvested a small amount of parathyroid tissue, and we reimplanted it in between the fibers and then closed this with a single 3-0 silk suture to nancy it in case it needs to be removed at a future time. I then closed the incision with interrupted 3-0 Vicryl deep dermal sutures and 4-0 Monocryl running subcuticular suture. Skin was cleaned and dried, and Steri- Strips were applied, followed by a sterile surgical dressing. Dr. Barrios injected the right cord to medialize the cord, and you can refer to his operative note for details about this. The patient was then awakened, extubated in the operating room, and transported to the recovery room in stable condition having tolerated the procedure without any apparent problems. JANE
[2018-09-25] MEDS: ceFAZolin(*) 2GM/D5W 50ML 50 ML IVPB SCH (23:32)
[2018-09-26] VITALS (8 sets, daily range): BP systolic 116–143; BP diastolic 62–76; Ht 180.3 cm; Wt 128.5 kg
[2018-09-26] MEDS: ceFAZolin(*) 2GM/D5W 50ML 50 ML IVPB SCH ×2 (08:30→15:29)
[2018-09-26] MEDS: TAMSULOSIN HCL 0.4 MG CAP PO SCH (09:26)
[2018-09-26] MEDS: HYDROCHLOROTHIAZIDE 25 MG TAB PO SCH (09:26)
[2018-09-26] MEDS: METOPROLOL SUCC XL 50 MG TABCR 50 MG TAB.ER.24H PO SCH (09:26)
[2018-09-26] MEDS: AMIODARONE 200 MG TAB PO SCH (09:28)
[2018-09-26] MEDS: LOSARTAN POTASSIUM 50 MG TAB PO SCH (09:28)
[2018-09-26] MEDS: amLODIPine BESYL(*) 5 MG TAB PO SCH (09:28)
[2018-09-26] MEDS: CALCIUM CARBONATE 500 MG CHEW CHEW SCH ×2 (09:30→20:23)
[2018-09-26] MEDS: CALCITRIOL 0.5 MCG CAPSULE PO SCH ×2 (09:30→20:23)
--- NOTE | 2018-09-26 09:30 | ENT Progress Note ---
Subjective Progress Notes Subjective POD #1 s/p parathyroidectomy. Pain controlled. Georges reg diet. No new concerns. Physical Exam Vital Signs Date Time Temp Pulse Resp B/P (MAP) Pulse Ox O2 Delivery O2 Flow Rate FiO2 09/26/18 08:56 87 09/26/18 08:21 98.0 67 18 143/76 (98) Bi-PAP 70.0 09/25/18 13:43 3.0 Intake and Output 09/26/18 07:00 Intake Total 1950 ml Output Total 500 ml Balance 1450 ml Intake Oral 200 ml IV Total 1550 ml Other 200 ml Output Urine Total 500 ml General Appearance: Alert, Awake, No Acute Distress Neck: Other (sutures intact, no collection) Musculoskeletal: Other (LUE dressing c/d/i) PTH 23 to < 3 Assessment and Plan Problems: (1) Hyperparathyroidism Status: Chronic Assessment & Plan: PTH dropped from 23 to < 3. Will keep patient to trend calcium. Plan discharge when calcium stable. Continue oral calcium and rocaltrol. Saline lock IV. OOB. HUGO ANN,NINOSKA Perez MD September 26, 2018 09:30
[2018-09-26] MEDS: BACITRACIN OINT 0.9 GM PKT TP SCH ×2 (10:55→20:24)
--- NOTE | 2018-09-26 15:01 | NUR ---
Called lab at 1321 to inquire about pending STAT "Parathyroid Hormone intact" lab from 1713 09/25- lab states they do not have any labs pending, but states this patient had "a bunch of orders involving the parathydroid yesterday." Patient did not arrive to medical/surgical unit until 09/25 at 2020.
[2018-09-26] MEDS ORDERED: NS(*) 0.9% 500 ML BAG 500 ML ONE (15:23)
[2018-09-26] MEDS ORDERED: WARFARIN SOD 5 MG TAB PO SCH (21:00)
[2018-09-27 00:26] VITALS: BP 136/76
[2018-09-27] MEDS: ceFAZolin(*) 2GM/D5W 50ML 50 ML IVPB SCH ×2 (00:28→07:54)
[2018-09-27 04:31] VITALS: BP 158/87
[2018-09-27 07:57] VITALS: BP 138/78
--- NOTE | 2018-09-27 08:59 | ENT Progress Note ---
Subjective Progress Notes Subjective POD #2 s/p parathyroidectomy. No new concerns. Physical Exam Vital Signs Date Time Temp Pulse Resp B/P (MAP) Pulse Ox O2 Delivery O2 Flow Rate FiO2 09/27/18 07:57 92 Nasal Cannula 3.0 09/27/18 07:57 97.6 59 14 138/78 (98) 09/27/18 04:31 70.0 Intake and Output 09/27/18 07:00 Intake Total 745 ml Output Total 1050 ml Balance -305 ml Intake Oral 695 ml IV Total 50 ml Output Urine Total 1050 ml # Bowel Movements 1 General Appearance: Alert, Awake, No Acute Distress Neck: Other (incision c/d/i, no collection) Extremities: Other (LUE dressing intact) Assessment and Plan Problems: (1) Hyperparathyroidism Status: Chronic Assessment & Plan: PTH dropped from 23 to < 3. Calcium trend 10, 9.7, 9.4. Plan discharge when calcium stable. Continue oral calcium and rocaltrol. OOB. HUGO ANN,NINOSKA Perez MD September 27, 2018 08:59
[2018-09-27] MEDS ORDERED: POLYETHYLENE GLYCOL 17 GM PKT PO SCH (09:00)
[2018-09-27] MEDS ORDERED: CEFU500T10 PO (09:07)
[2018-09-27] MEDS ORDERED: Tamsulosin Hcl PO (09:07)
[2018-09-27] MEDS ORDERED: CALC400T65 PO (09:07)
[2018-09-27] MEDS ORDERED: CALC0.5C5 PO (09:07)
[2018-09-27] MEDS: AMIODARONE 200 MG TAB PO SCH (09:20)
[2018-09-27] MEDS: HYDROCHLOROTHIAZIDE 25 MG TAB PO SCH (09:20)
[2018-09-27] MEDS: CALCIUM CARBONATE 500 MG CHEW CHEW SCH (09:20)
[2018-09-27] MEDS: LOSARTAN POTASSIUM 50 MG TAB PO SCH (09:20)
[2018-09-27] MEDS: TAMSULOSIN HCL 0.4 MG CAP PO SCH (09:20)
[2018-09-27] MEDS: amLODIPine BESYL(*) 5 MG TAB PO SCH (09:21)
[2018-09-27] MEDS: METOPROLOL SUCC XL 50 MG TABCR 50 MG TAB.ER.24H PO SCH (09:21)
[2018-09-27] MEDS: CALCITRIOL 0.5 MCG CAPSULE PO SCH (09:21)
[2018-09-27] MEDS: BACITRACIN OINT 0.9 GM PKT TP SCH (09:21)
[2018-09-27 11:30] VITALS: BP 123/74
[2018-09-27 15:30] VITALS: BP 128/75
[2018-09-27] MEDS ORDERED: CALCIUM CARBONATE 500 MG CHEW CHEW SCH ×2 (21:00)
[2018-09-27] MEDS ORDERED: CALCITRIOL 0.5 MCG CAPSULE PO SCH ×2 (21:00)
[2018-09-27] MEDS ORDERED: WARFARIN SOD 2.5 MG TAB PO SCH (21:00)
--- NOTE | 2018-09-28 08:33 | Hospitalist Depart ---
Discharge Summary Reason for Hosp/Final Diag: (1) Hyperparathyroidism Status: Resolved Hospital Course & Plan: Patient underwent parathyroidectomy, autotransplantation of parathyroid tissue and direct laryngoscopy and injection medialization of right vocal fold on day of admission. PTH dropped from 167 to less than 3. Calcium dropped and stabilized on supplemental calcium and rocaltrol. Georges reg diet. Pain controlled. Patient stable for discharge on POD #2. Departure Weight (Pounds): 283 Weight (Ounces): 6.0 Condition: Improved Discharge: Home Home Health RN Follow Up For: Cathether Care Discharge Code Status: Full Code Time Spent: < 30 min Discharge Instructions Home Meds Active Scripts Calcium Carbonate (TUMS ULTRA) 400 Mg Tab.chew, 2 TAB PO BID for 30 Days, #120 TAB.CHEW Prov:NINOSKA ARIAS JR, MD 09/27/18 [Tamsulosin Hcl(*) 0.4 Mg Cap] 0.4 MG CAP No Conflict Check, 0.4 MG PO QDAY for 30 Days, #30 CAP Prov:NINOSKA ARIAS JR, MD 09/27/18 Calcitriol (CALCITRIOL) 0.5 Mcg Capsule, 0.5 MCG PO BID for 30 Days, #60 CAPSULE Prov:NINOSKA ARIAS JR, MD 09/27/18 Cefuroxime Axetil (CEFUROXIME) 500 Mg Tablet, 500 MG PO BID, #20 TAB Prov:NINOSKA ARIAS JR, MD 09/27/18 Hydrocodone Bit/Acetaminophen (HYDROCODON-ACETAMINOPHEN 5-325) 1 Each Tablet, 1 EACH PO Q4H PRN for MILD TO MODERATE PAIN for 7 Days, #15 TAB Prov:NINOSKA ARIAS JR, MD 09/22/18 Folic Acid (FOLIC ACID) 1 Mg Tablet, 5 MG PO QDAY, #180 TAB 9 Refills Prov:DEBBY BELLO DOOR BUILDER-BC, ONC 02/14/17 Reported Medications [Vitamin B 12] No Conflict Check, 1000 MG PO DAILY 02/29/16 [Vitamin B 6] No Conflict Check, 50 MG PO BID 02/29/16 Amiodarone Hcl (PACERONE) 200 Mg Tablet, 200 MG PO DAILY 03/11/14 Metoprolol Succ 200 Mg Xl Tab (METOPROLOL SUCCINATE 200 MG) 200 Mg Tab.er.24h, 1 TAB PO QDAY, TAB 03/11/14 Losartan Potassium (LOSARTAN POTASSIUM) 50 Mg Tablet, 50 MG PO QDAY 03/11/14 Hydrochlorothiazide (HYDROCHLOROTHIAZIDE) 50 Mg Tablet, 1 TAB PO QDAY TAKE ONE TABLET BY MOUTH EVERY DAY 03/11/14 Amlodipine Besylate (AMLODIPINE BESYLATE) 10 Mg Tablet, 1 TAB PO QDAY, TAB TAKE ONE TABLET BY MOUTH EVERY DAY 03/11/14 Discontinued Reported Medications Warfarin Sodium (WARFARIN SODIUM) 5 Mg Tablet, 1.25 MG PO RICE, M, W, TH, F, TAB 12/03/16 Warfarin Sodium (WARFARIN SODIUM) 5 Mg Tablet, 2.5 MG PO FRI, FRI, TAB 12/03/16 Enoxaparin Sodium (LOVENOX) 150 Mg/Ml Soln, 150 MG SQ BID for 4 Days 09/15/18 Diet: Regular Activity: As Tolerated Special Instructions: You have a follow up appointment with Dr Arias on Monday 10/02. Keep your follow up appointment with urology doctor as scheduled for Friday. You may leave your incisions open to air and shower. Leave the steri strips in place until they fall off on their own. Venous Thromboembolism Antithrombotics Is Pt On Any Antithrombotics?: Yes NINOSKA ARIAS JR, MD September 28, 2018 08:33
[2018-09-29] MEDS ORDERED: TAMS0.4C25 PO (08:58)
[2018-10-02] MEDS ORDERED: AMOX-559 PO (13:32)
== END 2018-09-27 16:03 | disposition home or self-care (01) ==
LOC: OR 02:09 → MED 20:20 → INTOOBSV 20:20
PROVIDERS: ADMIT Otolaryngology; ATTEND Otolaryngology
DX: I10 Essential (primary) hypertension (principal); J38.01 Paralysis of vocal cords and larynx, unilateral
CPT/HCPCS: 31570; 36415; 60500; 60512; 82310; 83970; 88305; 94660; A9270; G0378; J0330; J1100; J2250; J2405; J2704; J3010; J7040; L8607; C9399; J0690

== ENCOUNTER → 2018-10-02 | Outpatient (CLI) | payer MEDICARE, OTHER ==
[2018-09-26 08:47] VITALS: BMI 39.5
[~2018-10-02] MED LIST changes: +AMOX-559 PO; +CAL25 PO; +CALC0.5C5 PO; +CALC400T65 PO; +CELE100C4 PO; +CYA1000 PO; +ENOX120D7 SQ; +PYRI50CA PO; +TAMS0.4C25 PO; +Tamsulosin Hcl PO; +WARF-1 PO
== END ==
LOC: LAB 11:09
PROVIDERS: ATTEND Otolaryngology
DX: E21.3 Hyperparathyroidism, unspecified (principal); E83.51 Hypocalcemia
CPT/HCPCS: 36415; 82310; 83970

== ENCOUNTER 2018-10-04 10:23 | Inpatient (IN) | payer MEDICARE, OTHER ==
[2018-09-26 08:47] VITALS: Ht 180.3 cm; Wt 125.2 kg
[~2018-10-04] VITALS: Ht 180.3 cm; Wt 125.2 kg
[~2018-10-04 10:23] MED LIST changes: -CAL25 PO; -CELE100C4 PO; -CYA1000 PO; -ENOX120D7 SQ; -PYRI50CA PO; -WARF-1 PO
[2018-10-04] MEDS ORDERED: NS(*) 0.9% 1000 ML BAG 1,000 ML IV ONE (10:37)
[2018-10-04 10:57] LABS: PLATELET COUNT, AUTOMATED 305 K/uL (150-450)
--- NOTE | 2018-10-04 10:58 | ER Report ---
History and Physical Time Seen By MD: 10:30 Hx. of Stated Complaint: PATIENT REPORTING LEFT LOWER LEG PAIN AND REDNESS. HE HAS A RECENT HX OF PARATHYROID SURGERY HPI/ROS CHIEF COMPLAINT: Left lower extremity redness, pain and swelling HISTORY OF PRESENT ILLNESS: This is a 73-year-old male who recently had thyroid surgery by Dr. Miguel Angel Arias earlier last week. He was seen and 5 for follow-up and there is some concern about some. Incisional cellulitis so patient was placed on Augmentin. Patient also has a history of atrial fibrillation and MTHFR gene; and is on Coumadin. He was off Coumadin briefly for the surgery but is receiving full strength at this time. Patient noticed the redness last night into this morning and was concerned so he came to the hospital. The area is tender and hot to the touch. He denies any chest pain or pressure but does admit to some shortness of breath. He does wear oxygen at nighttime as well as BiPAP but he does not require oxygen during the day. Room air sat upon arrival were 84 %. Patient denies any abdominal pain. He denies any incisional pain. REVIEW OF SYSTEMS: Constitutional: No fever, no chills. Eyes: No discharge. ENT: No sore throat. Cardiovascular: No chest pain, no palpitations. Respiratory: No cough, no shortness of breath. Gastrointestinal: No abdominal pain, no vomiting. Genitourinary: No hematuria. Musculoskeletal: No back pain. Skin: Redness to left lower extremity Neurological: No headache. Allergies: Coded Allergies: promethazine (Verified Adverse Reaction, Intermediate, Hallucinations, 09/23/18) pt reported Home Meds Active Scripts Amoxicillin/Pot Clav 875-125 Mg Tab (AUGMENTIN 875-125 TABLET) 1 Each Tablet, 1 TAB PO Q12H for 7 Days, #14 TAB Prov:MIGUEL ANGEL ARIAS JR, MD 10/02/18 Tamsulosin Hcl (FLOMAX) 0.4 Mg Cap.er.24h, 0.4 MG PO DAILY for 30 Days, #30 CAP Prov:FIDEL ALMONTE MD 09/29/18 Calcium Carbonate (TUMS ULTRA) 400 Mg Tab.chew, 2 TAB PO BID for 30 Days, #120 TAB.CHEW Prov:MIGUEL ANGEL ARIAS JR, MD 09/27/18 [Tamsulosin Hcl(*) 0.4 Mg Cap] 0.4 MG CAP No Conflict Check, 0.4 MG PO QDAY for 30 Days, #30 CAP Prov:MIGUEL ANGEL ARIAS JR, MD 09/27/18 Calcitriol (CALCITRIOL) 0.5 Mcg Capsule, 0.5 MCG PO BID for 30 Days, #60 CAPSULE Prov:MIGUEL ANGEL AIRAS JR, MD 09/27/18 Cefuroxime Axetil (CEFUROXIME) 500 Mg Tablet, 500 MG PO BID, #20 TAB Prov:MIGUEL ANGEL ARIAS JR, MD 09/27/18 Folic Acid (FOLIC ACID) 1 Mg Tablet, 5 MG PO QDAY, #180 TAB 9 Refills Prov:DEBBY BELLO EDITORIAL DIRECTOR-BC, ONC 02/14/17 Reported Medications [Vitamin B 12] No Conflict Check, 1000 MG PO DAILY 02/29/16 [Vitamin B 6] No Conflict Check, 50 MG PO BID 02/29/16 Amiodarone Hcl (PACERONE) 200 Mg Tablet, 200 MG PO DAILY 03/11/14 Metoprolol Succ 200 Mg Xl Tab (METOPROLOL SUCCINATE 200 MG) 200 Mg Tab.er.24h, 1 TAB PO QDAY, TAB 03/11/14 Losartan Potassium (LOSARTAN POTASSIUM) 50 Mg Tablet, 50 MG PO QDAY 03/11/14 Hydrochlorothiazide (HYDROCHLOROTHIAZIDE) 50 Mg Tablet, 1 TAB PO QDAY TAKE ONE TABLET BY MOUTH EVERY DAY 03/11/14 Amlodipine Besylate (AMLODIPINE BESYLATE) 10 Mg Tablet, 1 TAB PO QDAY, TAB TAKE ONE TABLET BY MOUTH EVERY DAY 03/11/14 Discontinued Scripts Hydrocodone Bit/Acetaminophen (HYDROCODON-ACETAMINOPHEN 5-325) 1 Each Tablet, 1 EACH PO Q4H PRN for MILD TO MODERATE PAIN for 7 Days, #15 TAB Prov:MIGUEL ANGEL ARIAS JR, MD 09/22/18 Past Medical/Surgical History Medical history for atrial fibrillation history of recent thyroid surgery, history of benign prostatic hypertrophy. History of urinary retention. Hx Smoking: No Smoking Status: Never Smoker Exposure to Second Hand Smoke?: Yes (PLAYED IN [employer] FOR 20 YEARS) Hx Substance Use Disorder: No Hx Alcohol Use: Yes (QUIT ) Constitutional Vital Sign - Last 24 Hours 10/04/18 10/04/18 10/04/18 10/04/18 10:26 10:27 10:30 10:46 Temp 98.1 Pulse 75 Resp 24 B/P (MAP) 136/120 136/120 (125) 131/65 (87) Pulse Ox 83 O2 Delivery Room Air O2 Flow Rate 3.0 10/04/18 10/04/18 10/04/18 10/04/18 10:53 11:00 11:23 11:52 Pulse 69 68 65 B/P (MAP) 103/44 (63) Pulse Ox 94 90 10/04/18 10/04/18 10/04/18 10/04/18 11:57 12:00 12:27 12:30 Pulse 65 64 B/P (MAP) 122/71 (88) 106/70 (82) Pulse Ox 92 89 10/04/18 10/04/18 12:57 13:00 Pulse 62 B/P (MAP) 137/77 (97) Pulse Ox 92 Physical Exam General/Constitutional: Patient is awake, alert, nontoxic and in no acute respiratory distress. Head: Normocephalic and atraumatic. Eyes: Conjunctival clear, Pupils are equal and reactive to light. Extraocular muscles are intact and symmetrical. Sclera are clear and anicteric. Ears:External canals are clear. Tympanic membranes are clear with normal landmarks and light reflex. Nares: No rhinorrhea or bleeding. Turbinates are pink and moist. Oropharyngeal: Mucous membranes are moist. There is no pharyngeal erythema or exudate. There are no palatal petechiae. Uvula is midline and symmetrical. Neck: Supple, no adenopathy. Cardiovascular: Heart is regular rate and rhythm without audible murmurs, rubs or gallops. Pulmonary: Lungs are clear to auscultation bilaterally. There are no wheezes, rales, or rhonchi. Chest rise is symmetrical Abdomen: Soft, nontender, no guarding or peritoneal signs. Extremities: No gross deformities, No peripheral cyanosis. Able to move all 4 extremities. Neuro: Alert and oriented X3, Cranial nerves 2 thru 12 are intact and symmetrical. Patient has normal gait. Skin: Erythema it's from the left ankle area of the proceed to midway up the calf. There is a clear space and then erythema extends to the left groin. It is warm and tender to the touch. Medical Decision Making Data Points Result Diagram: 10/04/18 1042 10/04/18 1042 Laboratory Hematology Test 10/04/18 10:42 Red Blood Count 5.15 M/uL (4.00-5.60) Mean Corpuscular Volume 96.9 fL (80.0-96.0) Mean Corpuscular Hemoglobin 32.4 pg (26.0-33.0) Mean Corpuscular Hemoglobin Concent 33.4 g/dL (32.0-36.0) Red Cell Distribution Width 14.4 % (11.5-14.5) Mean Platelet Volume 8.6 fL (7.2-11.1) Neutrophils (%) (Auto) 80.3 % (39.4-72.5) Lymphocytes (%) (Auto) 8.9 % (17.6-49.6) Monocytes (%) (Auto) 8.1 % (4.1-12.4) Eosinophils (%) (Auto) 2.0 % (0.4-6.7) Basophils (%) (Auto) 0.7 % (0.3-1.4) Nucleated RBC Relative Count (auto) 0.0 /100WBC Neutrophils # (Auto) 9.0 K/uL (2.0-7.4) Lymphocytes # (Auto) 1.0 K/uL (1.3-3.6) Monocytes # (Auto) 0.9 K/uL (0.3-1.0) Eosinophils # (Auto) 0.2 K/uL (0.0-0.5) Basophils # (Auto) 0.1 K/uL (0.0-0.1) Nucleated RBC Absolute Count (auto) 0.00 K/uL Prothrombin Time 18.1 seconds (12.0-14.4) Prothromb Time International Ratio 1.49 Activated Partial Thromboplast Time 36 seconds (23-35) Sodium Level 140 mmol/L (137-145) Potassium Level 3.7 mmol/L (3.5-5.0) Chloride Level 99 mmol/L (98-107) Carbon Dioxide Level 32 mmol/L (22-30) Blood Urea Nitrogen 21 mg/dl (9-21) Creatinine 1.40 mg/dl (0.66-1.25) Glomerular Filtration Rate Calc 50.0 Random Glucose 129 mg/dl (75-110) Calcium Level 9.9 mg/dl (8.4-10.2) Total Bilirubin 0.6 mg/dl (0.2-1.3) Aspartate Amino Transf (AST/SGOT) 21 U/L (0-35) Alanine Aminotransferase (ALT/SGPT) 33 U/L (0-56) Alkaline Phosphatase 70 U/L (0-126) Troponin I < 0.012 ng/ml Total Protein 7.4 g/dl (6.3-8.2) Albumin 4.0 g/dl (3.5-5.0) Chemistry Test 10/04/18 10:42 White Blood Count 11.2 k/uL (4.5-11.0) Red Blood Count 5.15 M/uL (4.00-5.60) Hemoglobin 16.7 g/dL (14.0-18.0) Hematocrit 49.9 % (42.0-52.0) Mean Corpuscular Volume 96.9 fL (80.0-96.0) Mean Corpuscular Hemoglobin 32.4 pg (26.0-33.0) Mean Corpuscular Hemoglobin Concent 33.4 g/dL (32.0-36.0) Red Cell Distribution Width 14.4 % (11.5-14.5) Platelet Count 305 K/uL (150-450) Mean Platelet Volume 8.6 fL (7.2-11.1) Neutrophils (%) (Auto) 80.3 % (39.4-72.5) Lymphocytes (%) (Auto) 8.9 % (17.6-49.6) Monocytes (%) (Auto) 8.1 % (4.1-12.4) Eosinophils (%) (Auto) 2.0 % (0.4-6.7) Basophils (%) (Auto) 0.7 % (0.3-1.4) Nucleated RBC Relative Count (auto) 0.0 /100WBC Neutrophils # (Auto) 9.0 K/uL (2.0-7.4) Lymphocytes # (Auto) 1.0 K/uL (1.3-3.6) Monocytes # (Auto) 0.9 K/uL (0.3-1.0) Eosinophils # (Auto) 0.2 K/uL (0.0-0.5) Basophils # (Auto) 0.1 K/uL (0.0-0.1) Nucleated RBC Absolute Count (auto) 0.00 K/uL Prothrombin Time 18.1 seconds (12.0-14.4) Prothromb Time International Ratio 1.49 Activated Partial Thromboplast Time 36 seconds (23-35) Glomerular Filtration Rate Calc 50.0 Calcium Level 9.9 mg/dl (8.4-10.2) Total Bilirubin 0.6 mg/dl (0.2-1.3) Aspartate Amino Transf (AST/SGOT) 21 U/L (0-35) Alanine Aminotransferase (ALT/SGPT) 33 U/L (0-56) Alkaline Phosphatase 70 U/L (0-126) Troponin I < 0.012 ng/ml Total Protein 7.4 g/dl (6.3-8.2) Albumin 4.0 g/dl (3.5-5.0) Coagulation Test 10/04/18 10:42 Prothrombin Time 18.1 seconds Prothromb Time International Ratio 1.49 Activated Partial Thromboplast Time 36 seconds EKG/Imaging Imaging [place] [facility] [place] NAME: Kirill Clancy : 1945 MR: [id number] V: [id number] EXAM DATE: ORDERING PHYSICIAN: AUSTEN TADEO TECHNOLOGIST: Location: [facility] Patient: Kirill Clancy : 1945 Visit/Account:[id number] Date of Sevice: 10/04/2018 US VENOUS LOWER EXT LT HISTORY: Left leg pain COMPARISON: None. FINDINGS: Grayscale, duplex and color Doppler interrogation of the left lower extremity deep veins from common femoral vein to proximal calf was completed. The greater saphenous vein in the proximal thigh was evaluated using similar technique. Common femoral vein - Negative. Femoral vein - Negative. Deep femoral vein - Negative. Popliteal vein - Negative. Visualized deep calf veins - Negative. Popliteal fossa: Negative. Greater saphenous vein in the proximal thigh: Negative. IMPRESSION: Negative left lower extremity venous ultrasound Report Dictated By: Herman Harris at 10/04/2018 11:41 AM Report E-Signed By: Herman Harris at 10/04/2018 11:42 AM WSN:[id number] [place] [facility] [place] NAME: Kirill Clancy : 1945 MR: [id number] V: [id number] EXAM DATE: ORDERING PHYSICIAN: AUSTEN TADEO TECHNOLOGIST: Location: [facility] Patient: Kirill Clancy : 1945 Visit/Account:[id number] Date of Sevice: 10/04/2018 CT angiogram chest with contrast Indication: Short of breath., sob, hx afib Comparison: 09/22/2018 Technique: Axial CT images are obtained through the chest after administration of 75 mL Isovue 370 IV contrast. Reformatted coronal and sagittal images were reviewed as well as coronal MIP images. One of the following dose optimization techniques was utilized in the performance of this exam: automated exposure control; adjustment of the mA and/or kV according to patient size; or use of iterative reconstruction technique. Specific details can be referenced in the facility?s radiology CT exam operational policy. FINDINGS: No evidence of filling defect within the pulmonary vasculature to suggest pulmonary embolus. The heart is normal in size. The thoracic aorta is nondilated. Compared to the prior study, there has been resection of a small nodule anterior to the brachiocephalic vein No focal infiltrate or consolidation. Mild atelectasis is noted along the major fissure on the right No evidence of pneumothorax or pleural effusion. The airways are patent. Visualized thoracic spine is unremarkable. The vertebral body heights are well maintained. No acute alignment abnormality Limited views of the upper abdomen are unremarkable. IMPRESSION: 1. No evidence of pulmonary embolus. 2. No acute cardiothoracic abnormality Report Dictated By: Herman Harris at 10/04/2018 12:26 PM Report E-Signed By: Herman Harris at 10/04/2018 12:30 PM WSN:[id number] ED Course/Re-evaluation ED Course Patient with likely cellulitis to the left lower extremity. We will draw lab work. Decision to Disposition Date: October 04, 2018 Decision to Disposition Time: 12:48 Depart Departure Latest Vital Signs Vital Signs Date Time Temp Pulse Resp B/P (MAP) Pulse Ox O2 Delivery O2 Flow Rate FiO2 10/04/18 13:00 137/77 (97) 10/04/18 12:57 62 92 10/04/18 10:46 3.0 10/04/18 10:26 98.1 24 Room Air Impression: Primary Impression: Cellulitis Condition: Improved Disposition: Admitted from ER (to Jeremy Maynard) Referrals: ROCIO CIFUENTES DO (PCP) Problem Qualifiers Primary Impression: Cellulitis Site of cellulitis: extremity Site of cellulitis of extremity: lower extremity Laterality: left Qualified Codes: L03.116 - Cellulitis of left lower limb AUSTEN TADEO MD October 04, 2018 10:58
[2018-10-04] MEDS ORDERED: NS(*) 0.9% 50 ML BAG 50 ML ONE (10:59)
[2018-10-04] MEDS ORDERED: IOPAMIDOL 76% 150 ML INFUS BTL 150 ML ONE (10:59)
[2018-10-04 11:06] LABS: INR 1.49
[2018-10-04] MEDS ORDERED: VANCOMYCIN(*) 1 GM VIAL 2 GM in NS(*) 0.9% 500 ML BAG 500 ML IVPB ONE ×2 (11:20→11:30)
--- NOTE | 2018-10-04 11:27 | EKG ---
FACILITY: [facility] PATIENT NAME: MERON GROSS : [id number] MR: [id number] V: [id number] EXAM DATE: ORDERING PHYSICIAN: AUSTEN TADEO TECHNOLOGIST: NISHA Test Reason : sob Blood Pressure : / mmHG Vent. Rate : 070 BPM Atrial Rate : 070 BPM P-R Int : 174 ms QRS Dur : 096 ms QT Int : 400 ms P-R-T Axes : 012 048 046 degrees QTc Int : 432 ms Normal sinus rhythm Normal ECG When compared with ECG of 01-SEP-2018 12:43, No significant change was found Confirmed by KATERYNA BARLOW ([id number]) on 10/04/2018 6:43:12 PM Referred By: CARLYLE Confirmed By:KATERYNA BARLOW
--- NOTE | 2018-10-04 11:46 | RADIOLOGY IMAGING REPORT ---
FACILITY: [facility] PATIENT NAME: Kirill Clancy : 1945 MR: [id number] V: [id number] EXAM DATE: ORDERING PHYSICIAN: AUSTEN TADEO TECHNOLOGIST: Location: [facility] [place] Patient: Kirill Clancy : 1945 Visit/Account:[id number] Date of Sevice: 10/04/2018 US VENOUS LOWER EXT LT HISTORY: Left leg pain COMPARISON: None. FINDINGS: Grayscale, duplex and color Doppler interrogation of the left lower extremity deep veins from common femoral vein to proximal calf was completed. The greater saphenous vein in the proximal thigh was myah luated using similar technique. Common femoral vein - Negative. Femoral vein - Negative. Deep femoral vein - Negative. Popliteal vein - Negative. Visualized deep calf veins - Negative. Popliteal fossa: Negative. Greater saphenous vein in the proximal thigh: Negative. IMPRESSION: Negative left lower extremity venous ultrasound Report Dictated By: Herman Harris at 10/04/2018 11:41 AM Report E-Signed By: Herman Harris at 10/04/2018 11:42 AM WSN:[id number]
--- NOTE | 2018-10-04 12:34 | RADIOLOGY IMAGING REPORT ---
FACILITY: [facility] [place] PATIENT NAME: Kirill Clancy : 1945 MR: [id number] V: [id number] EXAM DATE: ORDERING PHYSICIAN: AUSTEN TADEO TECHNOLOGIST: Location: [facility] [place] Patient: Kirill Clancy : 1945 Visit/Account:[id number] Date of Sevice: 10/04/2018 CT angiogram chest with contrast Indication: Short of breath., sob, hx afib Comparison: 09/22/2018 Technique: Axial CT images are obtained through the chest after administration of 75 mL Isovue 370 IV contrast. Reformatted coronal and sagittal images were reviewed as well as coronal MIP images. One of the following dose optimization techniques was utilized in the performance of this exam: auto mated exposure control; adjustment of the mA and/or kV according to patient size; or use of iterative reconstruction technique. Specific details can be referenced in the facility?s radiology CT exam ope rational policy. FINDINGS: No evidence of filling defect within the pulmonary vasculature to suggest pulmonary embolus. The heart is normal in size. The thoracic aorta is nondilated. Compared to the prior study, there has been resection of a small nodule anterior to the brachiocephalic vein No focal infiltrate or consolidation. Mild atelectasis is noted along the major fissure on the right No evidence of pneumothorax or pleural effusion. The airways are patent. Visualized thoracic spine is unremarkable. The vertebral body heights are well maintained. No acute a lignment abnormality Limited views of the upper abdomen are unremarkable. IMPRESSION: 1. No evidence of pulmonary embolus. 2. No acute cardiothoracic abnormality Report Dictated By: Herman Harris at 10/04/2018 12:26 PM Report E-Signed By: Herman Harris at 10/04/2018 12:30 PM WSN:[id number]
[2018-10-04] MEDS ORDERED: KETOROLAC 15 MG/ML VIAL IVP ONE (12:55)
[2018-10-04 14:01] VITALS: BP 144/75
[2018-10-04] MEDS ORDERED: CAL25 PO (14:12)
[2018-10-04] MEDS ORDERED: CYA1000 PO (14:16)
[2018-10-04] MEDS ORDERED: PYRI50CA PO (14:16)
[2018-10-04] MEDS ORDERED: NS(*) 0.9% 1000 ML BAG 1,000 ML IV PRN (15:07)
[2018-10-04] MEDS ORDERED: ONDANSETRON 4 MG/2 ML VIAL IVP PRN (15:10)
[2018-10-04] MEDS ORDERED: WARF2.5T62 PO (16:36)
[2018-10-04] MEDS ORDERED: WARF-1 PO (16:37)
--- NOTE | 2018-10-04 16:43 | History & Physical ---
History of Present Illness Chief Complaint Pain, redness and increased warmth of inner R leg. History of Present Illness The patient is a 73 year old male with PMH significant for recent parathyroidectomy who presents with pain and redness of his R leg and generally not feeling well. The patient had a parathyroidectomy on September 21. On October 02, he saw Dr. rAias due to redness and swelling of the surgical site. He was switched from Keflex to Augmentin for infection. That evening, the patient states his energy level was not good. [place] following day in his tractor and on his four wilburn. He noticed some pain and redness of his right inner thigh and lower leg. This morning, the pain was quite severe. The redness was more noticeable as well. There were no open areas or vesicles. He denies any trauma to the area. He denies fever or chills at home. He presented to [facility] ER for evaluation. Lab work showed a slightly elevated WBC with a left shift. His BUN and Cr were slightly elevated. He underwent CTA of the chest and venous doppler study of the R leg. Both were unremarkable. He was then recommended for admission for treatment of presumed cellulitis. Vanco 2g IV was given in the ER prior to admission. History Problems: (1) History of total knee arthroplasty Onset Date: ~ 2011 Status: Resolved (2) Hypertension Status: Chronic (3) Hypercholesteremia Status: Chronic (4) Gout Status: Chronic (5) Atrial fibrillation Status: Chronic (6) Hyperparathyroidism Status: Resolved (7) Reactive airway disease Status: Chronic (8) Secondary erythrocytosis Status: Chronic (9) CVA (cerebral vascular accident) Status: Resolved Comment: Due to venous clot. (10) Hx of brain surgery Status: Resolved Comment: Venous clot removed. (11) Hx of total knee arthroplasty Status: Resolved (12) S/P parathyroidectomy Status: Resolved (13) FARIDA (obstructive sleep apnea) Status: Chronic (14) GERD (gastroesophageal reflux disease) Status: Chronic (15) Heart murmur Status: Chronic (16) BPH (benign prostatic hyperplasia) Status: Chronic (17) MTHFR gene mutation Status: Chronic Home Meds Active Scripts Amoxicillin/Pot Clav 875-125 Mg Tab (AUGMENTIN 875-125 TABLET) 1 Each Tablet, 1 TAB PO Q12H for 7 Days, #14 TAB Prov:NINOSKA ARIAS JR, MD 10/02/18 Tamsulosin Hcl (FLOMAX) 0.4 Mg Cap.er.24h, 0.4 MG PO DAILY for 30 Days, #30 CAP Prov:FIDEL ALMONTE MD 09/29/18 Calcium Carbonate (TUMS ULTRA) 400 Mg Tab.chew, 2 TAB PO BID for 30 Days, #120 TAB.CHEW Prov:NINOSKA ARIAS JR, MD 09/27/18 Folic Acid (FOLIC ACID) 1 Mg Tablet, 5 MG PO QDAY, #180 TAB 9 Refills Prov:DEBBY BELLO CORPORATE PLANNING MANAGER-BC, ONC 02/14/17 Reported Medications Pyridoxine Hcl (VITAMIN B-6) 50 Mg Capsule, 50 MG PO BID, CAPSULE 10/04/18 Cyanocobalamin (Vitamin B-12) (VITAMIN B-12) 1,000 Mcg Tablet, 1000 MCG PO QDAY 10/04/18 Calcitriol (CALCITRIOL) 0.25 Mcg Cap, 2 TAB PO QDAY, CAP 10/04/18 Amiodarone Hcl (PACERONE) 200 Mg Tablet, 200 MG PO DAILY 03/11/14 Metoprolol Succ 200 Mg Xl Tab (METOPROLOL SUCCINATE 200 MG) 200 Mg Tab.er.24h, 1 TAB PO QDAY, TAB 03/11/14 Losartan Potassium (LOSARTAN POTASSIUM) 50 Mg Tablet, 50 MG PO QDAY 03/11/14 Hydrochlorothiazide (HYDROCHLOROTHIAZIDE) 50 Mg Tablet, 1 TAB PO QDAY TAKE ONE TABLET BY MOUTH EVERY DAY 03/11/14 Amlodipine Besylate (AMLODIPINE BESYLATE) 10 Mg Tablet, 1 TAB PO QDAY, TAB TAKE ONE TABLET BY MOUTH EVERY DAY 03/11/14 Discontinued Reported Medications [Vitamin B 12] No Conflict Check, 1000 MG PO DAILY 02/29/16 [Vitamin B 6] No Conflict Check, 50 MG PO BID 02/29/16 Discontinued Scripts [Tamsulosin Hcl(*) 0.4 Mg Cap] 0.4 MG CAP No Conflict Check, 0.4 MG PO QDAY for 30 Days, #30 CAP Prov:NINOSKA ARIAS JR, MD 09/27/18 Calcitriol (CALCITRIOL) 0.5 Mcg Capsule, 0.5 MCG PO BID for 30 Days, #60 CAPSULE Prov:NINOSKA ARIAS JR, MD 09/27/18 Cefuroxime Axetil (CEFUROXIME) 500 Mg Tablet, 500 MG PO BID, #20 TAB Prov:NINOSKA ARIAS JR, MD 09/27/18 Hydrocodone Bit/Acetaminophen (HYDROCODON-ACETAMINOPHEN 5-325) 1 Each Tablet, 1 EACH PO Q4H PRN for MILD TO MODERATE PAIN for 7 Days, #15 TAB Prov:NINOSKA ARIAS JR, MD 09/22/18 Allergies: Coded Allergies: promethazine (Verified Adverse Reaction, Intermediate, Hallucinations, 09/23/18) pt reported Patient History: FH: arthritis GRANDMOTHER MOTHER FH: atrial fibrillation BROTHER OR SISTER FH: breast cancer GRANDMOTHER, Onset:75 FH: dementia MOTHER FH: pulmonary embolism BROTHER OR SISTER, Onset:50's - 60 Hx Smoking: No Smoking Status: Never Smoker Exposure to Second Hand Smoke?: Yes (PLAYED IN [employer] FOR 20 YEARS) Caffeine Intake: Soda Caffeine/Cups Per Day: 1-2 CANS/DAY Hx Alcohol Use: Yes (QUIT ) Hx Substance Use Disorder: No Social Drug Use: Never Review of Systems Constitutional: No Fever, No Chills Neurological: Weakness Eyes: Other (Wears glasses.) ENT: Hearing Loss Cardiovascular: No Chest Pain Respiratory: Shortness of Breath; No Cough, No Wheezing Gastrointestinal: No Nausea, No Vomiting Genitourinary: Other (BPH. ) Musculoskeletal: Pain (DJD. Pain in R leg.) Psychiatric: No Depression Exam Vital Signs Vital Signs Date Time Temp Pulse Resp B/P (MAP) Pulse Ox O2 Delivery O2 Flow Rate FiO2 10/04/18 14:50 92 Nasal Cannula 2.0 10/04/18 14:01 97.8 62 20 144/75 (98) General Appearance: Alert, Awake, No Acute Distress Neuro: No Gross deficits Eyes: PERRLA Neck: No Masses Cardiovascular: Regular Rate and Rhythm Respiratory: Clear to Auscultation GI: Abd Soft and Non-Tender Extremities: Warm, Pulses (Full and equal bilaterally.), Perfused Integumentary: Other (R inner thigh with area of redness and increased warmth. Tender to the touch. R LE with area of redness distal lower leg and pain to touch.) Psych: Alert & Oriented X3, Appropriate Mood & Affect Medical Decision Making Data Points Result Diagram: 10/04/18 1042 10/04/18 1042 Item Value Date Time Prothrombin Time 18.1 seconds H 10/04/18 1042 Prothromb Time International Ratio 1.49 10/04/18 1042 Activated Partial Thromboplast Time 36 seconds H 10/04/18 1042 Calcium Level 9.9 mg/dl 10/04/18 1042 Total Bilirubin 0.6 mg/dl 10/04/18 1042 Aspartate Amino Transf (AST/SGOT) 21 U/L 10/04/18 1042 Alanine Aminotransferase (ALT/SGPT) 33 U/L 10/04/18 1042 Alkaline Phosphatase 70 U/L 10/04/18 1042 Total Protein 7.4 g/dl 10/04/18 1042 Albumin 4.0 g/dl 10/04/18 1042 Troponin I < 0.012 ng/ml 10/04/18 1042 Blood cultures ordered. EKG / Imaging EKG Interpretation FACILITY: [facility] [place] PATIENT NAME: KIRILL CLANCY DOB: [id number] MR: [id number] V: [id number] EXAM DATE: ORDERING PHYSICIAN: AUSTEN TADEO TECHNOLOGIST: Test Reason : sob Blood Pressure : / mmHG Vent. Rate : 070 BPM Atrial Rate : 070 BPM P-R Int : 174 ms QRS Dur : 096 ms QT Int : 400 ms P-R-T Axes : 012 048 046 degrees QTc Int : 432 ms Normal sinus rhythm Normal ECG When compared with ECG of 01-SEP-2018 12:43, No significant change was found Referred By: CARLYLE Confirmed By: [id number] T: / Imaging FACILITY: [facility] PATIENT NAME: Kirill Clancy : 1945 MR: [id number] V: [id number] EXAM DATE: ORDERING PHYSICIAN: AUSTEN TADEO TECHNOLOGIST: Location: [facility] Patient: Kirill Clancy : 1945 Visit/Account:[id number] Date of Sevice: 10/04/2018 CT angiogram chest with contrast Indication: Short of breath., sob, hx afib Comparison: 09/22/2018 Technique: Axial CT images are obtained through the chest after administration of 75 mL Isovue 370 IV contrast. Reformatted coronal and sagittal images were reviewed as well as coronal MIP images. One of the following dose optimization techniques was utilized in the performance of this exam: automated exposure control; adjustment of the mA and/or kV according to patient size; or use of iterative reconstruction technique. Specific details can be referenced in the facility?s radiology CT exam operational policy. FINDINGS: No evidence of filling defect within the pulmonary vasculature to suggest pulmonary embolus. The heart is normal in size. The thoracic aorta is nondilated. Compared to the prior study, there has been resection of a small nodule anterior to the brachiocephalic vein No focal infiltrate or consolidation. Mild atelectasis is noted along the major fissure on the right No evidence of pneumothorax or pleural effusion. The airways are patent. Visualized thoracic spine is unremarkable. The vertebral body heights are well maintained. No acute alignment abnormality Limited views of the upper abdomen are unremarkable. IMPRESSION: 1. No evidence of pulmonary embolus. 2. No acute cardiothoracic abnormality Report Dictated By: Herman Harris at 10/04/2018 12:26 PM Report E-Signed By: Herman Harris at 10/04/2018 12:30 PM WSN:[id number] FACILITY: [facility] [place] PATIENT NAME: Kirill Clancy : 1945 MR: [id number] V: [id number] EXAM DATE: ORDERING PHYSICIAN: AUSTEN TADEO TECHNOLOGIST: Location: [facility] Patient: Kirill Clancy : 1945 Visit/Account:[id number] Date of Sevice: 10/04/2018 US VENOUS LOWER EXT LT HISTORY: Left leg pain COMPARISON: None. FINDINGS: Grayscale, duplex and color Doppler interrogation of the left lower extremity deep veins from common femoral vein to proximal calf was completed. The greater saphenous vein in the proximal thigh was evaluated using similar technique. Common femoral vein - Negative. Femoral vein - Negative. Deep femoral vein - Negative. Popliteal vein - Negative. Visualized deep calf veins - Negative. Popliteal fossa: Negative. Greater saphenous vein in the proximal thigh: Negative. IMPRESSION: Negative left lower extremity venous ultrasound Report Dictated By: Herman Harris at 10/04/2018 11:41 AM Report E-Signed By: Herman Harris at 10/04/2018 11:42 AM WSN:[email or web address] Pre-Admit Course Medical Record Review: Yes Assessment and Plan Problems: (1) Cellulitis Status: Acute Assessment & Plan: Vanco started in ER. Will continue. Unusual distribution for cellulitis and exquisitely tender. Consider early shingles. Watch for development of vesicles. The patient did have his shingles vaccination. Will also continue Augmentin orally which he is on for a surgical wound infection. (2) S/P parathyroidectomy Status: Resolved Assessment & Plan: Dr. Arias following. On Augmentin for surgical wound infection. Continue home meds. (3) Hypertension Status: Chronic Assessment & Plan: Continue amlodipine, losartan and metoprolol XL. Hold HCTZ as he appears to be a bit dry. (4) Atrial fibrillation Status: Chronic Assessment & Plan: EKG shows he is currently in NSR. Continue amiodarone and warfarin. (5) FARIDA (obstructive sleep apnea) Status: Chronic Assessment & Plan: Continue CPAP. Patient has his own with him. (6) BPH (benign prostatic hyperplasia) Status: Chronic Assessment & Plan: Continue tamsulosin. 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 Continue warfarin. Time Spent on Plan of Care: < 30 min Venous Thromboembolism Antithrombotics Is Pt On Any Antithrombotics?: Yes (Coumadin) Exam Sepsis Risk: No Definite Risk Problem Qualifiers (1) Cellulitis: Site of cellulitis: extremity Site of cellulitis of extremity: lower extremity Laterality: left Qualified Codes: L03.116 - Cellulitis of left lower limb KATERYNA ELLIOTT MD October 04, 2018 16:43
[2018-10-04] MEDS: AMOX/CLAV 875 MG TAB PO SCH (17:06)
[2018-10-04] MEDS: WARFARIN SOD 2.5 MG TAB PO SCH (17:37)
[2018-10-04 18:52] VITALS: BP 139/68
[2018-10-04] MEDS ORDERED: VANCOMYCIN 1 GM ADDVIAL 1 GM in NS(*) 0.9% 250 ML ADDVAN BAG 250 ML IVPB ONE (20:00)
[2018-10-04] MEDS: CALCIUM CARBONATE 500 MG CHEW PO SCH (20:17)
[2018-10-04] MEDS: ACETAMINOPHEN 325 MG TAB PO PRN (20:17)
[2018-10-04] MEDS: PYRIDOXINE HCL 50 MG TAB PO SCH (20:17)
[2018-10-04 22:20] VITALS: BP 134/70
[2018-10-05 05:05] VITALS: BP 134/70
[2018-10-05 07:42] VITALS: BP 140/78
[2018-10-05 07:52] LABS: PLATELET COUNT, AUTOMATED 279 K/uL (150-450)
[2018-10-05 08:00] LABS: INR 1.64
[2018-10-05] MEDS: FOLIC ACID 1 MG TAB PO SCH (08:24)
[2018-10-05] MEDS: TAMSULOSIN HCL 0.4 MG CAP PO SCH (08:25)
[2018-10-05] MEDS: AMIODARONE 200 MG TAB PO SCH (08:25)
[2018-10-05] MEDS: amLODIPine BESYL(*) 5 MG TAB PO SCH (08:25)
[2018-10-05] MEDS: CYANOCOBALAMIN 1000 MCG TAB PO SCH (08:25)
[2018-10-05] MEDS: ACETAMINOPHEN 325 MG TAB PO PRN ×3 (08:25→22:19)
[2018-10-05] MEDS: AMOX/CLAV 875 MG TAB PO SCH ×2 (08:26→17:05)
[2018-10-05] MEDS: LOSARTAN POTASSIUM 50 MG TAB PO SCH (08:26)
[2018-10-05] MEDS: METOPROLOL SUCC XL 50 MG TABCR 50 MG TAB.ER.24H PO SCH (08:26)
[2018-10-05] MEDS: CALCIUM CARBONATE 500 MG CHEW PO SCH ×2 (08:26→21:44)
[2018-10-05] MEDS: CALCITRIOL 0.5 MCG CAPSULE PO SCH (08:27)
[2018-10-05] MEDS: PYRIDOXINE HCL 50 MG TAB PO SCH ×2 (08:28→21:44)
[2018-10-05 11:02] VITALS: BP 140/78
[2018-10-05] MEDS: VANCOMYCIN(*) 1 GM VIAL 1 GM, VANCOMYCIN (*) 0.5 GM VIAL 0.5 GM in NS(*) 0.9% 250 ML BA... IVPB SCH ×2 (11:02→23:05)
--- NOTE | 2018-10-05 11:25 | Hospitalist Progress Note ---
Subjective Progress Notes Subjective This patient was admitted for cellulitis. He had no acute events overnight. Patient Complains of: Cardiovascular: No: Chest Pain Respiratory: No: Shortness of Breath Physical Exam Vital Signs Date Time Temp Pulse Resp B/P (MAP) Pulse Ox O2 Delivery O2 Flow Rate FiO2 10/05/18 11:02 98.1 64 16 140/78 (98) 91 Nasal Cannula 2.0 Intake and Output 10/05/18 07:00 Intake Total 1359 ml Balance 1359 ml Intake Oral 220 ml IV Total 1139 ml # Voids 5 Cardiovascular: Regular Rate and Rhythm Respiratory: Clear to Auscultation Integumentary: Other (minimal erythema involving a patch on the left inner thi gh and distal calf.) Result Diagram: 10/05/1874610/05/18746 Assessment and Plan Problems: (1) Cellulitis Status: Acute Assessment & Plan: He presented with erythema in the left thigh and distal calf. He has been on treatment with Augmentin and vancomycin. It hasn't changed much overnight. His cultures have been negative. We will continue antibiotics for now. (2) S/P parathyroidectomy Status: Resolved Assessment & Plan: Dr. Barrios following. He was placed on Augmentin for a possible wound infection. (3) Hypertension Status: Chronic Assessment & Plan: He is on chronic treatment with amlodipine, losartan, and metoprolol. (4) Atrial fibrillation Status: Chronic Assessment & Plan: He is on chronic treatment with warfarin. Daily INR is ordered. (5) FARIDA (obstructive sleep apnea) Status: Chronic Assessment & Plan: Continue CPAP. Patient has his own with him. (6) BPH (benign prostatic hyperplasia) Status: Chronic Assessment & Plan: Continue tamsulosin. 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 Continue warfarin. Exam Sepsis Risk: No Definite Risk Problem Qualifiers (1) Cellulitis: Site of cellulitis: extremity Site of cellulitis of extremity: lower extremity Laterality: left Qualified Codes: L03.116 - Cellulitis of left lower limb (2) Hypertension: Hypertension type: essential hypertension Qualified Codes: I10 - Essential (primary) hypertension ELA YANEZ DO October 05, 2018 11:25
[2018-10-05] MEDS ORDERED: WARFARIN SOD 2.5 MG TAB PO SCH (13:00)
[2018-10-05] MEDS: WARFARIN SOD 2.5 MG TAB PO SCH (13:03)
[2018-10-05 15:12] VITALS: BP 149/69
[2018-10-05 19:17] VITALS: BP 136/68
[2018-10-05 23:07] VITALS: BP 133/81
[2018-10-06 06:20] LABS: INR 1.66
[2018-10-06 08:04] VITALS: BP 152/83
[2018-10-06] MEDS ORDERED: ENOXAPARIN 100 MG/ML SYR SC SCH (09:05)
[2018-10-06] MEDS: ENOXAPARIN SC SCH ×2 (09:59→21:15)
[2018-10-06] MEDS: CYANOCOBALAMIN 1000 MCG TAB PO SCH (09:59)
[2018-10-06] MEDS: amLODIPine BESYL(*) 5 MG TAB PO SCH (10:00)
[2018-10-06] MEDS: FOLIC ACID 1 MG TAB PO SCH (10:00)
[2018-10-06] MEDS: LOSARTAN POTASSIUM 50 MG TAB PO SCH (10:00)
[2018-10-06] MEDS: AMOX/CLAV 875 MG TAB PO SCH ×2 (10:00→17:11)
[2018-10-06] MEDS: TAMSULOSIN HCL 0.4 MG CAP PO SCH (10:01)
[2018-10-06] MEDS: AMIODARONE 200 MG TAB PO SCH (10:02)
[2018-10-06] MEDS: CALCIUM CARBONATE 500 MG CHEW PO SCH ×2 (10:02→21:14)
[2018-10-06] MEDS: METOPROLOL SUCC XL 50 MG TABCR 50 MG TAB.ER.24H PO SCH (10:02)
[2018-10-06] MEDS: PYRIDOXINE HCL 50 MG TAB PO SCH ×2 (10:12→21:14)
[2018-10-06] MEDS: CALCITRIOL 0.5 MCG CAPSULE PO SCH (10:12)
[2018-10-06 10:40] VITALS: BP 148/77
--- NOTE | 2018-10-06 10:48 | Hospitalist Progress Note ---
Subjective Progress Notes Subjective He reports significant pain and persistent erythema on left distal thigh and distal lower leg. No fever. Physical Exam Vital Signs Date Time Temp Pulse Resp B/P (MAP) Pulse Ox O2 Delivery O2 Flow Rate FiO2 10/06/18 08:04 97.9 65 152/83 (106) 91 10/05/18 23:07 20 CPAP 6.0 Intake and Output 10/06/18 07:00 Intake Total 495 ml Balance 495 ml Intake Oral 230 ml IV Total 265 ml # Voids 3 # Bowel Movements 1 General Appearance: Alert, Awake Neck: Other (incision is clean/dry/no drainage/no erythema) Extremities: Warm, Perfused, Edema (trace) Integumentary: Other (two patches of erythema left distal medial thigh and dis ronal medial lower leg both appear to have cord present especially medial thigh) Psych: Alert & Oriented X3 Result Diagram: 10/05/18 0747 10/05/18 0747 Assessment and Plan Problems: (1) Cellulitis Status: Acute Assessment & Plan: He presented with erythema in the left thigh and distal calf. He has been on treatment with Augmentin and vancomycin. It hasn't changed much overnight. His cultures have been negative. It appears this may be a superficial phlebitis. Will try some local warm packs/elevation. Will continue the oral Augmentin, but stop the vancomycin. Watch. (2) S/P parathyroidectomy Status: Resolved Assessment & Plan: Dr. Barrios following. He was placed on Augmentin for a possible wound infection. This has improved significantly. He will continue the Augmentin, but will stop the vancomycin. (3) Hypertension Status: Chronic Assessment & Plan: He is on chronic treatment with amlodipine, losartan, and metoprolol. (4) Atrial fibrillation Status: Chronic Assessment & Plan: He is on chronic treatment with warfarin. His INR has been sub-therapeutic. Will place on full dose Lovenox until therapeutic. Daily INR is ordered. (5) FARIDA (obstructive sleep apnea) Status: Chronic Assessment & Plan: Continue CPAP. Patient has his own with him. He is requiring higher flow oxygen at night. He will probably need follow up sleep study/CPAP titration. (6) BPH (benign prostatic hyperplasia) Status: Chronic Assessment & Plan: Continue tamsulosin. 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 Continue warfarin. Will overlap with Lovenox until therapeutic. Exam Sepsis Risk: No Definite Risk Problem Qualifiers (1) Cellulitis: Site of cellulitis: extremity Site of cellulitis of extremity: lower extremity Laterality: left Qualified Codes: L03.116 - Cellulitis of left low er limb (2) Hypertension: Hypertension type: essential hypertension Qualified Codes: I10 - Essential (primary) hypertension TODD ELLIOTT MD October 06, 2018 10:48
[2018-10-06] MEDS ORDERED: WARFARIN SOD 5 MG TAB PO SCH (13:00)
[2018-10-06] MEDS: ACETAMINOPHEN 325 MG TAB PO PRN ×2 (14:09→23:28)
[2018-10-06 17:09] VITALS: BP 140/75
[2018-10-06 21:12] VITALS: BP 134/79
[2018-10-07] MEDS ORDERED: ENOXAPARIN 100 MG/ML SYR SC SCH
[2018-10-07] MEDS ORDERED: ENOXAPARIN 30 MG/0.3 ML SYR SC SCH
[2018-10-07 04:15] VITALS: BP 144/92
[2018-10-07 05:43] LABS: PLATELET COUNT, AUTOMATED 291 K/uL (150-450)
[2018-10-07 05:48] LABS: INR 1.69
[2018-10-07 07:06] VITALS: BP 140/94
[2018-10-07] MEDS: ENOXAPARIN SC SCH (09:15)
[2018-10-07] MEDS: CALCIUM CARBONATE 500 MG CHEW PO SCH (09:15)
[2018-10-07] MEDS: CYANOCOBALAMIN 1000 MCG TAB PO SCH (09:15)
[2018-10-07] MEDS: LOSARTAN POTASSIUM 50 MG TAB PO SCH (09:15)
[2018-10-07] MEDS: PYRIDOXINE HCL 50 MG TAB PO SCH (09:15)
[2018-10-07] MEDS: METOPROLOL SUCC XL 50 MG TABCR 50 MG TAB.ER.24H PO SCH (09:15)
[2018-10-07] MEDS: AMIODARONE 200 MG TAB PO SCH (09:15)
[2018-10-07] MEDS: CALCITRIOL 0.5 MCG CAPSULE PO SCH (09:15)
[2018-10-07] MEDS: TAMSULOSIN HCL 0.4 MG CAP PO SCH (09:15)
[2018-10-07] MEDS: FOLIC ACID 1 MG TAB PO SCH (09:15)
[2018-10-07] MEDS: AMOX/CLAV 875 MG TAB PO SCH (09:15)
[2018-10-07] MEDS: amLODIPine BESYL(*) 5 MG TAB PO SCH (09:15)
[2018-10-07] MEDS: ACETAMINOPHEN 325 MG TAB PO PRN ×2 (11:25→12:25)
[2018-10-07] MEDS: WARFARIN SOD 2.5 MG TAB PO SCH (12:25)
[2018-10-07] MEDS ORDERED: CELE100C4 PO (14:24)
[2018-10-07] MEDS ORDERED: ENOX120D7 SQ (14:24)
--- NOTE | 2018-10-07 14:30 | Hospitalist Depart ---
Discharge Summary Reason for Hosp/Final Diag: (1) Cellulitis Status: Acute Hospital Course & Plan: He presented with erythema in the left thigh and distal calf. He had been on treatment with Augmentin and vancomycin. It hadn't changed much overnight. His cultures have been negative. He is afebrile and has a normal WBC. It appears this may be a superficial phlebitis. Will try some local warm packs/elevation/prn Celebrex. Will continue the oral Augmentin for the wound infection. (2) Superficial thrombophlebitis Status: Acute Hospital Course & Plan: Secondary to being off of anticoagulation for surgery x2. See above. Now on warfarin and being bridged with Lovenox until INR > 1.9 (3) S/P parathyroidectomy Status: Resolved Hospital Course & Plan: Dr. Arias following. He was placed on Augmentin for a possible wound infection. This has improved significantly. See above. 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 On warfarin. See above. (5) Hypertension Status: Chronic Hospital Course & Plan: He is on chronic treatment with amlodipine, losartan, and metoprolol. (6) FARIDA (obstructive sleep apnea) Status: Chronic Hospital Course & Plan: Continue CPAP. Patient has his own with him. He is requiring higher flow oxygen at night. He will probably need follow up sleep study/CPAP titration. (7) BPH (benign prostatic hyperplasia) Status: Chronic Hospital Course & Plan: Continue tamsulosin. (8) Atrial fibrillation Status: Chronic Hospital Course & Plan: He is on chronic treatment with warfarin. His INR has been sub-therapeutic. See above. Departure Weight (Pounds): 276 Weight (Ounces): 6.0 Result Diagram: 10/07/1853210/07/18532 Item Value Date Time Sodium Level 140 mmol/L 10/04/18 1042 Potassium Level 3.7 mmol/L 10/04/18 1042 Carbon Dioxide Level 32 mmol/L H 10/04/18 1042 Chloride Level 99 mmol/L 10/04/18 1042 Blood Urea Nitrogen 21 mg/dl 10/04/18 1042 Random Glucose 129 mg/dl H 10/04/18 1042 Total Bilirubin 0.6 mg/dl 10/04/18 1042 Aspartate Amino Transf (AST/SGOT) 21 U/L 10/04/18 1042 Alanine Aminotransferase (ALT/SGPT) 33 U/L 10/04/18 1042 Alkaline Phosphatase 70 U/L 10/04/18 1042 Troponin I < 0.012 ng/ml 10/04/18 1042 Creatinine 1.40 mg/dl H 10/04/18 1042 Blood Urea Nitrogen 20 mg/dl 10/05/18 0747 Creatinine 1.20 mg/dl 10/05/18 0747 Blood Urea Nitrogen 12 mg/dl 10/07/18 0533 Creatinine 1.10 mg/dl 10/07/18 0533 White Blood Count 11.2 k/uL H 10/04/18 1042 White Blood Count 8.9 k/uL 10/05/18 0747 White Blood Count 7.9 k/uL 10/07/18 0533 Neutrophils (%) (Auto) 72.2 % 10/07/18 0533 Neutrophils (%) (Auto) 77.3 % H 10/05/18 0747 Neutrophils (%) (Auto) 80.3 % H 10/04/18 1042 Prothromb Time International Ratio 1.69 10/07/18 0533 Prothromb Time International Ratio 1.66 10/06/18 0536 Prothromb Time International Ratio 1.64 10/05/18 0747 Prothromb Time International Ratio 1.49 10/04/18 1042 No growth from blood culture done on 10/04. Imaging 10/05/18 Echo - See official report. EF 60-65%. No regional wall motion abnormalities. The proximal aorta is dilated. 10/04/18 Chest CTA - 1. No evidence of pulmonary embolus. 2. No acute cardiothoracic abnormality 10/04/18 Venogram - Negative left lower extremity venous ultrasound EKG Vent. Rate : 070 BPM Atrial Rate : 070 BPM P-R Int : 174 ms QRS Dur : 096 ms QT Int : 400 ms P-R-T Axes : 012 048 046 degrees QTc Int : 432 ms Normal sinus rhythm Normal ECG When compared with ECG of 01-SEP-2018 12:43, No significant change was found Confirmed by KATERYNA BARLOW ([id number]) on 10/04/2018 6:43:12 PM Condition: Improved Discharge: Home Discharge Instructions Home Meds Active Scripts Celecoxib (Celecoxib) 100 Mg Capsule, 1 CAP PO Q12H PRN for pain, #10 Prov:JOSIANE PINEDA MD 10/07/18 Enoxaparin Sodium (ENOXAPARIN SODIUM) 120 Mg/0.8 Ml Disp.syrin, 120 MG SQ Q12H, #6 1 Refill Prov:JOSIANE PINEDA MD 10/07/18 Amoxicillin/Pot Clav 875-125 Mg Tab (AUGMENTIN 875-125 TABLET) 1 Each Tablet, 1 TAB PO Q12H for 7 Days, #14 TAB Prov:NINOSKA ARIAS JR, MD 10/02/18 Tamsulosin Hcl (FLOMAX) 0.4 Mg Cap.er.24h, 0.4 MG PO DAILY for 30 Days, #30 CAP Prov:FIDEL ALMONTE MD 09/29/18 Calcium Carbonate (TUMS ULTRA) 400 Mg Tab.chew, 2 TAB PO BID for 30 Days, #120 TAB.CHEW Prov:NINOSKA ARIAS JR, MD 09/27/18 Folic Acid (FOLIC ACID) 1 Mg Tablet, 5 MG PO QDAY, #180 TAB 9 Refills Prov:DEBBY BELLO [employer]S SALES MANAGER-BC, ONC 02/14/17 Reported Medications Warfarin Sodium (COUMADIN) 5 Mg Tablet, 5 MG PO TuSa 10/04/18 Warfarin Sodium (COUMADIN) 2.5 Mg Tablet, 2.5 MG PO [id number] 10/04/18 Pyridoxine Hcl (VITAMIN B-6) 50 Mg Capsule, 50 MG PO BID, CAPSULE 10/04/18 Cyanocobalamin (Vitamin B-12) (VITAMIN B-12) 1,000 Mcg Tablet, 1000 MCG PO QDAY 10/04/18 Calcitriol (CALCITRIOL) 0.25 Mcg Cap, 2 TAB PO QDAY, CAP 10/04/18 Amiodarone Hcl (PACERONE) 200 Mg Tablet, 200 MG PO DAILY 03/11/14 Metoprolol Succ 200 Mg Xl Tab (METOPROLOL SUCCINATE 200 MG) 200 Mg Tab.er.24h, 1 TAB PO QDAY, TAB 03/11/14 Losartan Potassium (LOSARTAN POTASSIUM) 50 Mg Tablet, 50 MG PO QDAY 03/11/14 Hydrochlorothiazide (HYDROCHLOROTHIAZIDE) 50 Mg Tablet, 1 TAB PO QDAY TAKE ONE TABLET BY MOUTH EVERY DAY 03/11/14 Amlodipine Besylate (AMLODIPINE BESYLATE) 10 Mg Tablet, 1 TAB PO QDAY, TAB TAKE ONE TABLET BY MOUTH EVERY DAY 03/11/14 Discontinued Reported Medications [Vitamin B 12] No Conflict Check, 1000 MG PO DAILY 02/29/16 [Vitamin B 6] No Conflict Check, 50 MG PO BID 02/29/16 Discontinued Scripts [Tamsulosin Hcl(*) 0.4 Mg Cap] 0.4 MG CAP No Conflict Check, 0.4 MG PO QDAY for 30 Days, #30 CAP Prov:NINOSKA ARIAS JR, MD 09/27/18 Calcitriol (CALCITRIOL) 0.5 Mcg Capsule, 0.5 MCG PO BID for 30 Days, #60 CAPSULE Prov:NINOSKA ARIAS JR, MD 09/27/18 Cefuroxime Axetil (CEFUROXIME) 500 Mg Tablet, 500 MG PO BID, #20 TAB Prov:NINOSKA ARIAS JR, MD 09/27/18 Hydrocodone Bit/Acetaminophen (HYDROCODON-ACETAMINOPHEN 5-325) 1 Each Tablet, 1 EACH PO Q4H PRN for MILD TO MODERATE PAIN for 7 Days, #15 TAB Prov:NINOSKA ARIAS JR, MD 09/22/18 Diet: Regular Activity: As Tolerated Special Instructions: Follow up with your PCP in 1-2 weeks. Follow up with Dr. Arias as scheduled. Go to the ER for worsening pain or redness in the leg. Also, go to the ER for fevers, chills, chest pain, shortness of breath. Check your INR daily. Continue the Lovenox until INR is greater than 1.9. Copies to: ROCIO CIFUENTES DO ; Venous Thromboembolism Antithrombotics Is Pt On Any Antithrombotics?: Yes (Coumadin) Problem Qualifiers (1) Cellulitis: Site of cellulitis: extremity Site of cellulitis of extremity: lower extremity Laterality: left Qualified Codes: L03.116 - Cellulitis of left lower limb (2) Superficial thrombophlebitis: Superficial thrombophlebitis-Involved body area: lower extremity Laterality: left Qualified Codes: I80.02 - Phlebitis and thrombophlebitis of superficial vessels of left lower extremity (3) Hypertension: Hypertension type: essential hypertension Qualified Codes: I10 - Essential (primary) hypertension JOSIANE PINEDA MD October 07, 2018 14:30
== END 2018-10-07 16:40 | disposition home or self-care (01) | DRG 300 ==
LOC: ER 10:50 → MED 13:21
PROVIDERS: ADMIT Internal Medicine; ATTEND Internal Medicine
PROC: 5A09357 Assistance with Respiratory Ventilation, Less than 24 Consecutive Hours, Continuous Positive Airway Pressure (ICD-10-PCS; principal; 2018-10-04)
DX: I80.02 Phlebitis and thrombophlebitis of superficial vessels of left lower extremity (principal); L03.116 Cellulitis of left lower limb; E72.12 Methylenetetrahydrofolate reductase deficiency; G47.33 Obstructive sleep apnea (adult) (pediatric); E89.0 Postprocedural hypothyroidism; I48.2 Chronic atrial fibrillation; I10 Essential (primary) hypertension; N40.0 Benign prostatic hyperplasia without lower urinary tract symptoms; E78.00 Pure hypercholesterolemia, unspecified; D75.1 Secondary polycythemia; T45.516A Underdosing of anticoagulants, initial encounter; R01.1 Cardiac murmur, unspecified; Z86.718 Personal history of other venous thrombosis and embolism; Z88.8 Allergy status to other drugs, medicaments and biological substances; Z86.73 Personal history of transient ischemic attack (TIA), and cerebral infarction without residual deficits; Z79.01 Long term (current) use of anticoagulants; Z91.128 Patient's intentional underdosing of medication regimen for other reason
CPT/HCPCS: 36415; 71275; 80202; 82040; 82247; 82310; 82374; 82435; 82565; 82947; 84075; 84132; 84155; 84295; 84450; 84460; 84484; 84520; 85025; 85610; 85730; 87040; 93005; 93306; 94660; 96365; 96375; 99285; J1650; J1885; J3370; J7030; J7040; J7050; Q9967

== ENCOUNTER → 2018-10-09 | Outpatient (CLI) | payer MEDICARE, OTHER ==
[2018-09-26 08:47] VITALS: BMI 39.5
[~2018-10-09] MED LIST changes: +CAL25 PO; +CELE100C4 PO; +CYA1000 PO; +ENOX120D7 SQ; +PYRI50CA PO; +WARF-1 PO
== END ==
LOC: LAB 12:03
PROVIDERS: ATTEND Otolaryngology
DX: E21.3 Hyperparathyroidism, unspecified (principal)
CPT/HCPCS: 36415; 82310

== ENCOUNTER → 2018-10-16 | Outpatient (CLI) | payer MEDICARE, OTHER ==
[2018-09-26 08:47] VITALS: BMI 39.5
[~2018-10-16] MED LIST changes: +CEPH500T7 PO; +HYDR-385 PO
== END ==
LOC: LAB 09:25
PROVIDERS: ATTEND Otolaryngology
DX: E21.3 Hyperparathyroidism, unspecified (principal)
CPT/HCPCS: 36415; 82310

== ENCOUNTER 2018-10-17 10:29 | Emergency (ER) | payer MEDICARE, OTHER ==
[2018-09-26 08:47] VITALS: Wt 123.4 kg
[~2018-10-17 10:29] MED LIST changes: -CEPH500T7 PO; -HYDR-385 PO
--- NOTE | 2018-10-17 10:36 | ER Report ---
History and Physical Time Seen By MD: 10:36 HPI/ROS Fall on onto his right wrist. Now with 8/10 pain in his right wrist. Mild swelling. No other pain or injuries. No fever/chills. Was told once that he had gout in his big toe. Currenty taking warfarin. Tried Allipuronol, with no relief. Remainder of the 14 system rev: Yes Allergies: Coded Allergies: promethazine (Verified Adverse Reaction, Intermediate, Hallucinations, 10/18/18) pt reported Home Meds Active Scripts Prednisone (PREDNISONE) 20 Mg Tablet, 40 MG PO DAILY for 4 Days, #8 TAB Prov:MOIRA TIJERINA 10/18/18 Cephalexin 500 Mg Tab (KEFLEX 500 MG TAB) 500 Mg Tablet, 500 MG PO Q6H for 7 Days, #28 TAB Prov:MOIRA TIJERINA 10/18/18 Hydrocodone Bit/Acetaminophen (HYDROCODON-ACETAMINOPHEN 5-325) 1 Each Tablet, 1 EACH PO Q6H for 3 Days, #10 TAB Prov:CARRIE MARTIN MD 10/17/18 Celecoxib (Celecoxib) 100 Mg Capsule, 1 CAP PO Q12H PRN for pain, #10 Prov:JOSIANE PINEDA MD 10/07/18 Tamsulosin Hcl (FLOMAX) 0.4 Mg Cap.er.24h, 0.4 MG PO DAILY for 30 Days, #30 CAP Prov:FIDEL ALMONTE MD 09/29/18 Folic Acid (FOLIC ACID) 1 Mg Tablet, 5 MG PO QDAY, #180 TAB 9 Refills Prov:DEBBY BELLO [employer] OPERATOR-BC, ONC 02/14/17 Reported Medications Warfarin Sodium (COUMADIN) 5 Mg Tablet, 5 MG PO TuSa 10/04/18 Warfarin Sodium (COUMADIN) 2.5 Mg Tablet, 2.5 MG PO SuMoWeThFr 10/04/18 Pyridoxine Hcl (VITAMIN B-6) 50 Mg Capsule, 50 MG PO BID, CAPSULE 10/04/18 Cyanocobalamin (Vitamin B-12) (VITAMIN B-12) 1,000 Mcg Tablet, 1000 MCG PO QDAY 10/04/18 Amiodarone Hcl (PACERONE) 200 Mg Tablet, 200 MG PO DAILY 03/11/14 Metoprolol Succ 200 Mg Xl Tab (METOPROLOL SUCCINATE 200 MG) 200 Mg Tab.er.24h, 1 TAB PO QDAY, TAB 03/11/14 Losartan Potassium (LOSARTAN POTASSIUM) 50 Mg Tablet, 50 MG PO QDAY 03/11/14 Hydrochlorothiazide (HYDROCHLOROTHIAZIDE) 50 Mg Tablet, 1 TAB PO QDAY TAKE ONE TABLET BY MOUTH EVERY DAY 03/11/14 Amlodipine Besylate (AMLODIPINE BESYLATE) 10 Mg Tablet, 1 TAB PO QDAY, TAB TAKE ONE TABLET BY MOUTH EVERY DAY 03/11/14 Discontinued Reported Medications Calcitriol (CALCITRIOL) 0.25 Mcg Cap, 2 TAB PO QDAY, CAP 10/04/18 Discontinued Scripts Enoxaparin Sodium (ENOXAPARIN SODIUM) 120 Mg/0.8 Ml Disp.syrin, 120 MG SQ Q12H, #6 1 Refill Prov:JOSIANE PINEDA MD 10/07/18 Amoxicillin/Pot Clav 875-125 Mg Tab (AUGMENTIN 875-125 TABLET) 1 Each Tablet, 1 TAB PO Q12H for 7 Days, #14 TAB Prov:NINOSKA ARIAS JR, MD 10/02/18 Calcium Carbonate (TUMS ULTRA) 400 Mg Tab.chew, 2 TAB PO BID for 30 Days, #120 TAB.CHEW Prov:NINOSKA ARIAS JR, MD 09/27/18 Reviewed Nurses Notes: Yes Old Medical Records Reviewed: Yes Hx Smoking: No Smoking Status: Never Smoker Exposure to Second Hand Smoke?: Yes (PLAYED IN [employer] FOR 20 YEARS) Hx Substance Use Disorder: No Hx Alcohol Use: Yes (QUIT ) Constitutional Vital Sign - Last 24 Hours 10/17/18 10/17/18 10/17/18 10/17/18 10:32 10:34 10:59 11:04 Temp 97.6 Pulse 68 62 62 Resp 16 B/P (MAP) 126/80 126/80 (95) Pulse Ox 92 91 10/17/18 10/17/18 11:30 11:34 Pulse 61 B/P (MAP) 114/65 (81) Pulse Ox 91 Physical Exam General appearance: alert no distress Right hand: There is no significant swelling. There is no obvious deformity to the hand. There is moderate and diffuse TTP of the wrist. There is no snuff box tenderness. Skin: No erythema, no warmth Neurologic exam: The patient has normal sensation distal to the injury. Tendon function is intact. Vascular exam: Normal pulses and capillary refill in the fingers DIFFERENTIAL DIAGNOSIS: After history and physical exam differential diagnosis was considered for hand injury including contusion, fracture, ligamentous and tendon injuries, gout, pseudogout, septic joint. Medical Decision Making ED Course/Re-evaluation ED Course No effusion or fracture on x-ray. Very minimal soft tissue swelling. The patient still complains of moderate to severe pain in his wrist. He did not tolerate a splint well. He did prefer an Law wrap for comfort. I discussed with the patient that this could be early gout, pseudogout, or even a septic joint. Do not think his symptoms are consistent with an occult fracture. I'm giving him a short course of Vicodin, and encouraged him to return to the emergency department tomorrow if his symptoms were not improving. Decision to Disposition Date: Oct 19, 2018 Decision to Disposition Time: 16:06 Depart Departure Latest Vital Signs Vital Signs Date Time Temp Pulse Resp B/P (MAP) Pulse Ox O2 Delivery O2 Flow Rate FiO2 10/17/18 11:34 61 91 10/17/18 11:30 114/65 (81) 10/17/18 10:32 97.6 16 Impression: Primary Impression: Sprain of wrist, right Condition: Improved Disposition: HOME OR SELF-CARE Referrals: ROCIO CIFUENTES DO (PCP) New Scripts Hydrocodone Bit/Acetaminophen (HYDROCODON-ACETAMINOPHEN 5-325) 1 Each Tablet 1 EACH PO Q6H for 3 Days, #10 TAB Prov: CARRIE MARTIN MD 10/17/18 Patient Instructions: Wrist Sprain (ED) Problem Qualifiers Primary Impression: Sprain of wrist, right Encounter type: initial encounter Qualified Codes: S63.501A - Unspecified sprain of right wrist, initial encounter CARRIE MARTIN MD Oct 17, 2018 10:36
--- NOTE | 2018-10-17 11:22 | RADIOLOGY IMAGING REPORT ---
FAC[place] [facility] [place]IENT NAME: Kirill Clancy : 1945 MR: [id number] V: [id number] EXAM DATE: ORDERING PHYSICIAN: CARRIE MARTIN TECHNOLOGIST: Location: [facility] - [place] Patient: Kirill Clancy : 1945 Visit/Account:[id number] Date of Sevice: 10/17/2018 XR WRIST 3 OR MORE VIEWS RT Indication: fall on , and now with pain in wrist Comparison: None Available Findings: No evidence of fracture, dislocation, or acute osseous abnormality right wrist. No evidence of radiopaque foreign body. There is no focal soft tissue abnormality. Moderate vascular calcifications. Moderate degenerative changes at the first CMC and scaphoid scaphoid-trapezium joint IMPRESSION: 1.No acute osseous abnormality right wrist. 2. Chronic findings, as above. Report Dictated By: Chris Ibarra MD at 10/17/2018 11:15 AM Report E-Signed By: Chris Ibarra MD at 10/17/2018 11:17 AM WSN:[id number]
[2018-10-17 11:30] VITALS: BP 114/65
[2018-10-17] MEDS ORDERED: HYDR-385 PO (11:48)
[2018-10-17] MEDS ORDERED: APAP/HYDROCODONE 325/5 TAB PO ONE (11:50)
[2018-10-18] MEDS ORDERED: PRED20TA6 PO (18:20)
[2018-10-18] MEDS ORDERED: CEPH500T7 PO (18:20)
== END 2018-10-17 11:57 | disposition home or self-care (01) ==
LOC: ER 10:42
DX: S63.501A Unspecified sprain of right wrist, initial encounter (principal)
CPT/HCPCS: 73110; 99283; A9270; L3908

== ENCOUNTER 2018-10-18 15:31 | Emergency (ER) | payer MEDICARE, OTHER ==
[2018-09-26 08:47] VITALS: BMI 39.5
[~2018-10-18 15:31] MED LIST changes: +HYDR-385 PO
--- NOTE | 2018-10-18 15:48 | ER Report ---
History and Physical Time Seen By MD: 15:40 Hx. of Stated Complaint: Right wrist pain HPI/ROS CHIEF COMPLAINT: Right wrist pain HISTORY OF PRESENT ILLNESS: 73 year old male presents to ED with worsening right wrist pain. Patient was seen in ED yesterday post fall on right wrist. x-ray was taken with no signs of fracture. Patient reports he went home yesterday and has been in bed since that time. He has taken 1 tab of vicodin every four hours, last dose was at 1000. Reports pain has worsened; rates it an 8 out of 10 in his wrist. Reports increased swelling and mild fevers. Has been icing his wrist about once every hour. Reports associated symptoms of nausea. REVIEW OF SYSTEMS: Constitutional: No fevers, chills. Reports decreased appetite. HENT: Reports mild headache. Respiratory: No cough, no dyspnea. Cardiovascular: No chest pain, no palpitations. Gastrointestinal: No vomiting, no abdominal pain. Reports nausea from the pain. Musculoskeletal: No back pain. Right wrist pain. Swelling in wrist, hand, and fingers. Allergies: Coded Allergies: promethazine (Verified Adverse Reaction, Intermediate, Hallucinations, 10/18/18) pt reported Home Meds Active Scripts Prednisone (PREDNISONE) 20 Mg Tablet, 40 MG PO DAILY for 4 Days, #8 TAB Prov:JUSTO TIJERINA 10/18/18 Cephalexin 500 Mg Tab (KEFLEX 500 MG TAB) 500 Mg Tablet, 500 MG PO Q6H for 7 Days, #28 TAB Prov:JUSTO TIJERINA 10/18/18 Hydrocodone Bit/Acetaminophen (HYDROCODON-ACETAMINOPHEN 5-325) 1 Each Tablet, 1 EACH PO Q6H for 3 Days, #10 TAB Prov:CARRIE MARTIN MD 10/17/18 Celecoxib (Celecoxib) 100 Mg Capsule, 1 CAP PO Q12H PRN for pain, #10 Prov:JOSIANE PINEDA MD 10/07/18 Tamsulosin Hcl (FLOMAX) 0.4 Mg Cap.er.24h, 0.4 MG PO DAILY for 30 Days, #30 CAP Prov:FIDEL ALMONTE MD 09/29/18 Folic Acid (FOLIC ACID) 1 Mg Tablet, 5 MG PO QDAY, #180 TAB 9 Refills Prov:DEBBY BELLO CERTIFIED MEDICAL RECORDS CODER-BC, ONC 02/14/17 Reported Medications Warfarin Sodium (COUMADIN) 5 Mg Tablet, 5 MG PO TuSa 10/04/18 Warfarin Sodium (COUMADIN) 2.5 Mg Tablet, 2.5 MG PO SuMoWeThFr 10/04/18 Pyridoxine Hcl (VITAMIN B-6) 50 Mg Capsule, 50 MG PO BID, CAPSULE 10/04/18 Cyanocobalamin (Vitamin B-12) (VITAMIN B-12) 1,000 Mcg Tablet, 1000 MCG PO QDAY 10/04/18 Amiodarone Hcl (PACERONE) 200 Mg Tablet, 200 MG PO DAILY 03/11/14 Metoprolol Succ 200 Mg Xl Tab (METOPROLOL SUCCINATE 200 MG) 200 Mg Tab.er.24h, 1 TAB PO QDAY, TAB 03/11/14 Losartan Potassium (LOSARTAN POTASSIUM) 50 Mg Tablet, 50 MG PO QDAY 03/11/14 Hydrochlorothiazide (HYDROCHLOROTHIAZIDE) 50 Mg Tablet, 1 TAB PO QDAY TAKE ONE TABLET BY MOUTH EVERY DAY 03/11/14 Amlodipine Besylate (AMLODIPINE BESYLATE) 10 Mg Tablet, 1 TAB PO QDAY, TAB TAKE ONE TABLET BY MOUTH EVERY DAY 03/11/14 Discontinued Reported Medications Calcitriol (CALCITRIOL) 0.25 Mcg Cap, 2 TAB PO QDAY, CAP 10/04/18 Discontinued Scripts Enoxaparin Sodium (ENOXAPARIN SODIUM) 120 Mg/0.8 Ml Disp.syrin, 120 MG SQ Q12H, #6 1 Refill Prov:JOSIANE PINEDA MD 10/07/18 Amoxicillin/Pot Clav 875-125 Mg Tab (AUGMENTIN 875-125 TABLET) 1 Each Tablet, 1 TAB PO Q12H for 7 Days, #14 TAB Prov:NINOSKA ARIAS JR, MD 10/02/18 Calcium Carbonate (TUMS ULTRA) 400 Mg Tab.chew, 2 TAB PO BID for 30 Days, #120 TAB.CHEW Prov:NINOSKA ARIAS JR, MD 09/27/18 Hx Smoking: No Smoking Status: Never Smoker Exposure to Second Hand Smoke?: Yes (PLAYED IN [employer] FOR 20 YEARS) Hx Substance Use Disorder: No Hx Alcohol Use: Yes (QUIT ) Constitutional Vital Sign - Last 24 Hours 10/18/18 10/18/18 10/18/18 10/18/18 15:39 15:41 15:44 15:46 Temp 99.3 Pulse 66 66 66 Resp 20 B/P (MAP) 110/57 (74) 110/57 Pulse Ox 90 92 92 O2 Delivery Nasal Cannula 10/18/18 10/18/18 10/18/18 10/18/18 15:51 15:56 16:01 16:06 Pulse 66 66 66 65 Pulse Ox 93 93 92 93 10/18/18 10/18/18 10/18/18 10/18/18 16:26 16:31 16:36 16:41 Pulse ??? 67 68 66 Pulse Ox 92 93 93 10/18/18 10/18/18 10/18/18 10/18/18 16:46 16:51 16:56 16:58 Pulse 67 67 67 B/P (MAP) 116/61 (79) Pulse Ox 93 92 92 10/18/18 10/18/18 10/18/18 10/18/18 17:01 17:16 17:21 17:26 Pulse 67 67 67 67 Pulse Ox 92 90 90 91 10/18/18 10/18/18 17:30 17:48 Temp 100.0 B/P (MAP) 117/62 (80) Physical Exam General Appearance: The patient is alert, has no immediate need for airway protection and no current signs of toxicity. [ ] Eyes: Pupils equal and round no injection. Respiratory: Chest is non tender, lungs are clear to auscultation. Cardiac: regular rate and rhythm Gastrointestinal: Abdomen is soft and non tender, no masses, bowel sounds normal. Musculoskeletal: Neck: Neck is supple and non tender. Right distal arm, wrist, hand, and fingers with edema. Right hand warm to touch. Unable to supinate wrist. Limited flexion, no extension. Minimal range of motion of fingers. Reports pain with palpation circumstantially around wrist and hand bones. Reports distal ulnar and radial pain with palpation. Extremities have full range of motion and are non tender. Skin: No rashes or lesions. DIFFERENTIAL DIAGNOSIS: After history and physical exam differential diagnosis was considered for right wrist fracture, cellulitis, pneumonia. Medical Decision Making Data Points Result Diagram: 10/18/18 1556 10/18/18 1556 Laboratory Hematology Test 10/18/18 15:56 10/18/18 17:52 Red Blood Count 4.80 M/uL (4.00-5.60) Mean Corpuscular Volume 95.6 fL (80.0-96.0) Mean Corpuscular Hemoglobin 32.1 pg (26.0-33.0) Mean Corpuscular Hemoglobin Concent 33.6 g/dL (32.0-36.0) Red Cell Distribution Width 14.1 % (11.5-14.5) Mean Platelet Volume 8.4 fL (7.2-11.1) Neutrophils (%) (Auto) 78.1 % (39.4-72.5) Lymphocytes (%) (Auto) 9.7 % (17.6-49.6) Monocytes (%) (Auto) 11.1 % (4.1-12.4) Eosinophils (%) (Auto) 0.7 % (0.4-6.7) Basophils (%) (Auto) 0.4 % (0.3-1.4) Nucleated RBC Relative Count (auto) 0.0 /100WBC Neutrophils # (Auto) 8.6 K/uL (2.0-7.4) Lymphocytes # (Auto) 1.1 K/uL (1.3-3.6) Monocytes # (Auto) 1.2 K/uL (0.3-1.0) Eosinophils # (Auto) 0.1 K/uL (0.0-0.5) Basophils # (Auto) 0.0 K/uL (0.0-0.1) Nucleated RBC Absolute Count (auto) 0.00 K/uL Erythrocyte Sedimentation Rate 45 mm/HOUR (0-20) Sodium Level 136 mmol/L (137-145) Potassium Level 3.9 mmol/L (3.5-5.0) Chloride Level 94 mmol/L (98-107) Carbon Dioxide Level 32 mmol/L (22-30) Blood Urea Nitrogen 18 mg/dl (9-21) Creatinine 1.30 mg/dl (0.66-1.25) Glomerular Filtration Rate Calc 54.4 Random Glucose 119 mg/dl (75-110) Calcium Level 7.7 mg/dl (8.4-10.2) Total Bilirubin 0.4 mg/dl (0.2-1.3) Aspartate Amino Transf (AST/SGOT) 20 U/L (0-35) Alanine Aminotransferase (ALT/SGPT) 35 U/L (0-56) Alkaline Phosphatase 72 U/L (0-126) C-Reactive Protein 13.5 mg/dl (<1.0) Total Protein 6.9 g/dl (6.3-8.2) Albumin 3.7 g/dl (3.5-5.0) Urine Color Yellow Urine Clarity Clear Urine pH 6.0 pH (4.8-9.5) Urine Specific [place] 1.023 Urine Protein Negative mg/dL (NEGATIVE) Urine Glucose (UA) Negative mg/dL (NEGATIVE) Urine Ketones Negative mg/dL (NEGATIVE) Urine Blood Negative (NEGATIVE) Urine Nitrite Negative (NEGATIVE) Urine Bilirubin Negative (NEGATIVE) Urine Urobilinogen Negative mg/dL (0.2-1.9) Urine Leukocyte Esterase Trace (NEGATIVE) Urine RBC 1 /HPF (0-2/HPF) Urine WBC 2 /HPF (0-5/HPF) Urine Squamous Epithelial Cells None /LPF (</=FEW) Urine Transitional Epithelial Cells Few /LPF (NONE-FEW) Urine Bacteria Negative /HPF (NONE-FEW) Urine Hyaline Casts Few /LPF (NONE-FEW) Urine Mucus Few /HPF (NONE-FEW) Chemistry Test 10/18/18 15:56 10/18/18 17:52 White Blood Count 11.0 k/uL (4.5-11.0) Red Blood Count 4.80 M/uL (4.00-5.60) Hemoglobin 15.4 g/dL (14.0-18.0) Hematocrit 45.8 % (42.0-52.0) Mean Corpuscular Volume 95.6 fL (80.0-96.0) Mean Corpuscular Hemoglobin 32.1 pg (26.0-33.0) Mean Corpuscular Hemoglobin Concent 33.6 g/dL (32.0-36.0) Red Cell Distribution Width 14.1 % (11.5-14.5) Platelet Count 328 K/uL (150-450) Mean Platelet Volume 8.4 fL (7.2-11.1) Neutrophils (%) (Auto) 78.1 % (39.4-72.5) Lymphocytes (%) (Auto) 9.7 % (17.6-49.6) Monocytes (%) (Auto) 11.1 % (4.1-12.4) Eosinophils (%) (Auto) 0.7 % (0.4-6.7) Basophils (%) (Auto) 0.4 % (0.3-1.4) Nucleated RBC Relative Count (auto) 0.0 /100WBC Neutrophils # (Auto) 8.6 K/uL (2.0-7.4) Lymphocytes # (Auto) 1.1 K/uL (1.3-3.6) Monocytes # (Auto) 1.2 K/uL (0.3-1.0) Eosinophils # (Auto) 0.1 K/uL (0.0-0.5) Basophils # (Auto) 0.0 K/uL (0.0-0.1) Nucleated RBC Absolute Count (auto) 0.00 K/uL Erythrocyte Sedimentation Rate 45 mm/HOUR (0-20) Glomerular Filtration Rate Calc 54.4 Calcium Level 7.7 mg/dl (8.4-10.2) Total Bilirubin 0.4 mg/dl (0.2-1.3) Aspartate Amino Transf (AST/SGOT) 20 U/L (0-35) Alanine Aminotransferase (ALT/SGPT) 35 U/L (0-56) Alkaline Phosphatase 72 U/L (0-126) C-Reactive Protein 13.5 mg/dl (<1.0) Total Protein 6.9 g/dl (6.3-8.2) Albumin 3.7 g/dl (3.5-5.0) Urine Color Yellow Urine Clarity Clear Urine pH 6.0 pH (4.8-9.5) Urine Specific [place] 1.023 Urine Protein Negative mg/dL (NEGATIVE) Urine Glucose (UA) Negative mg/dL (NEGATIVE) Urine Ketones Negative mg/dL (NEGATIVE) Urine Blood Negative (NEGATIVE) Urine Nitrite Negative (NEGATIVE) Urine Bilirubin Negative (NEGATIVE) Urine Urobilinogen Negative mg/dL (0.2-1.9) Urine Leukocyte Esterase Trace (NEGATIVE) Urine RBC 1 /HPF (0-2/HPF) Urine WBC 2 /HPF (0-5/HPF) Urine Squamous Epithelial Cells None /LPF (</=FEW) Urine Transitional Epithelial Cells Few /LPF (NONE-FEW) Urine Bacteria Negative /HPF (NONE-FEW) Urine Hyaline Casts Few /LPF (NONE-FEW) Urine Mucus Few /HPF (NONE-FEW) Urinalysis Test 10/18/18 17:52 Urine Color Yellow Urine Clarity Clear Urine pH 6.0 pH (4.8-9.5) Urine Specific [place] 1.023 Urine Protein Negative mg/dL (NEGATIVE) Urine Glucose (UA) Negative mg/dL (NEGATIVE) Urine Ketones Negative mg/dL (NEGATIVE) Urine Blood Negative (NEGATIVE) Urine Nitrite Negative (NEGATIVE) Urine Bilirubin Negative (NEGATIVE) Urine Urobilinogen Negative mg/dL (0.2-1.9) Urine Leukocyte Esterase Trace (NEGATIVE) Urine RBC 1 /HPF (0-2/HPF) Urine WBC 2 /HPF (0-5/HPF) Urine Squamous Epithelial Cells None /LPF (</=FEW) Urine Transitional Epithelial Cells Few /LPF (NONE-FEW) Urine Bacteria Negative /HPF (NONE-FEW) Urine Hyaline Casts Few /LPF (NONE-FEW) Urine Mucus Few /HPF (NONE-FEW) EKG/Imaging Imaging Right wrist CT: FINDINGS: No fracture or dislocation. There are scattered bony cysts throughout the carpus that are degenerative in nature. Chondrocalcinosis of the TFCC is noted. Soft tissues are grossly unremarkable by CT. IMPRESSION: No fracture or dislocation. Multifocal degenerative findings. Chest x-ray: FINDINGS: The lungs are clear. No focal consolidation or pleural fluid. No pneumothorax. Normal cardiomediastinal silhouette, with normal heart size and pulmonary vascularity. Visualized osseous structures are unremarkable. IMPRESSION: Negative chest. ED Course/Re-evaluation ED Course Upon admission ED, patient admitted to an exam room, hx and physical obtained, differentials considered. Patient presents with worsening right wrist pain. Patient was seen in ED yesterday post fall on right wrist. x-ray was taken with no signs of fracture. Patient reports he went home yesterday and has been in bed since that time. He has taken 1 tab of vicodin every four hours, last dose was at 1000. Reports pain has worsened; rates it an 8 out of 10 in his wrist. Reports increased swelling and mild fevers. Has been icing his wrist about once every hour. Reports associated symptoms of nausea. Right distal arm, wrist, hand, and fingers with edema. Right hand warm to touch. Unable to supinate wrist. Limited flexion, no extension. Minimal range of motion of fingers. Reports pain with palpation circumstantially around wrist and hand bones. Reports distal ulnar and radial pain with palpation. Low grade fever present. Lungs clear to auscultation. Heart rate and rhythm regular. CBC, CMP, ESR, CRP, chest x-ray to rule out pneumonia, right wrist CT, UA obtained. IV started, 50mcg fentanyl given, 125mg methylprednisolone given. Negative chest x-ray. No fracture or dislocation on wrist CT. Patient reports he feels much better after the steroid and fentanyl. It is my believe this time the patient likely is ryan de la garza at a flareup of gout, although he's never had it in his wrist. I believe is likely flared up from the trauma that he had. We did try to wean patient off of oxygen, he did drop down to 86%. We'll go ahead and have him on continuous oxygen for time being. Patient states that he was uncomfortable going home with oxygen. He was lightheaded when he arrived in the emergency room. We will go ahead and discharge patient home, will treat him with Keflex and prednisone. I did have concerns about possible cellulitis, although I believe is less likely than a gout flare up. We will go ahead and cover our bases with the Keflex while he is on the steroids. I discussed this with the patient and his and they verbalized understanding and agreement with plan. Decision to Disposition Date: Oct 18, 2018 Decision to Disposition Time: 18:14 Depart Departure Latest Vital Signs Vital Signs Date Time Temp Pulse Resp B/P (MAP) Pulse Ox O2 Delivery O2 Flow Rate FiO2 10/18/18 17:48 100.0 10/18/18 17:30 117/62 (80) 10/18/18 17:26 67 91 10/18/18 15:44 20 Nasal Cannula Impression: Primary Impression: Sprain of wrist, right Additional Impressions: Cellulitis Gout Condition: Improved Disposition: HOME OR SELF-CARE Referrals: ROCIO CIFUENTES DO (PCP) JAMEE ZUNIGA MD New Scripts Prednisone (PREDNISONE) 20 Mg Tablet 40 MG PO DAILY for 4 Days, #8 TAB Prov: JUSTO TIJERINA 10/18/18 Cephalexin 500 Mg Tab (KEFLEX 500 MG TAB) 500 Mg Tablet 500 MG PO Q6H for 7 Days, #28 TAB Prov: JUSTO TIJERINA 10/18/18 Departure Forms: ER Transition Record, Home Oxygen, Nebulizer RX, Home Oxygen Company Chosen by Patient: [employer] Medical Equipment-Oxygen: Oxygen Concentrator, Portable Oxygen Gas Reason for Use/Diagnosis: FARIDA, Hypoxia Start Date of the Order: Oct 18, 2018 Dosage or Concentration (if applicable) - LPM: 2 Route of Administration (if applicable): Nasal Cannula Frequency of Use: Continuous Duration Home O2 Required: 1 Duration Units: Months Room Air Oxygen Saturation: 78 ER Prescribing Physician's Name: Justo Tijerina NPI Numbers for Local ER MDs: Zachariah [id number] Medications Reconciliation, Patient Portal Information Patient Instructions: Cellulitis (ED), Gout (ED) Additional Instructions: Please drink plenty of water and get plenty of rest at home. Please take antibiotics as prescribed. Take the antibiotics until they are gone. Please take steroids as prescribed. Please wear oxygen at all times. Please follow-up with Dr. Zuniga, an orthopaedic doctor Friday or Friday of this week. Please follow-up with your primary care provider next week. Return to the ER with fever, worsening pain, difficulty breathing, or chest pain. Problem Qualifiers Primary Impression: Sprain of wrist, right Encounter type: subsequent encounter Qualified Codes: S63.501D - Unspecified sprain of right wrist, subsequent encounter Additional Impressions: Cellulitis Site of cellulitis: extremity Site of cellulitis of extremity: upper extremity Laterality: right Qualified Codes: L03.113 - Cellulitis of right upper limb Gout Gout site: wrist Gout etiology: unspecified cause Chronicity: acute Laterality: right Qualified Codes: M10.9 - Gout, unspecified JUSTO TIJERINA Oct 18, 2018 15:48
[2018-10-18] MEDS ORDERED: fentaNYL CITR 100 MCG/2 ML AMP IVP ONE (15:50)
[2018-10-18 16:14] LABS: PLATELET COUNT, AUTOMATED 328 K/uL (150-450)
[2018-10-18] MEDS ORDERED: methylPREDNIS SUCC 125 MG/2ML IVP ONE (16:35)
--- NOTE | 2018-10-18 16:53 | RADIOLOGY IMAGING REPORT ---
FACILITY: [facility] PATIENT NAME: Kirill Clancy : 1945 MR: [id number] V: [id number] EXAM DATE: ORDERING PHYSICIAN: MOIRA TIJERINA TECHNOLOGIST: Location: [facility] - [place] Patient: Kirill Clancy : 1945 Visit/Account:[id number] Date of Sevice: 10/18/2018 INDICATION: fall with pain. DATE: 10/18/2018 4:39 PM. TECHNIQUE: CT WRIST/HAND W/O RT. Noncontrast axial CT imaging was performed through the right wrist w ith sagittal and coronal reformats. One of the following dose optimization techniques was utilized in the performance of this exam: Automated exposure control; adjustment of the mA and/or kV according t o the patient's size; or use of an iterative reconstruction technique. Specific details can be refe renced in the facility's radiology CT exam operational policy. COMPARISON: Wrist radiograph October 17, 2018. FINDINGS: No fracture or dislocation. There are scattered bony cysts throughout the carpus that are d egenerative in nature. Chondrocalcinosis of the TFCC is noted. Soft tissues are grossly unremarkable by CT. IMPRESSION: No fracture or dislocation. Multifocal degenerative findings. Report Dictated By: Terry Arriola MD at 10/18/2018 4:39 PM Report E-Signed By: Terry Arriola MD at 10/18/2018 4:49 PM WSN:[id number]
--- NOTE | 2018-10-18 17:29 | RADIOLOGY IMAGING REPORT ---
FACILITY: [facility] PATIENT NAME: Kirill Clancy : 1945 MR: [id number] V: [id number] EXAM DATE: ORDERING PHYSICIAN: MOIRA TIJERINA TECHNOLOGIST: Location: [facility] [place] Patient: Kirill Clancy : 1945 Visit/Account:[id number] Date of Sevice: 10/18/2018 EXAMINATION: Chest 2 Views HISTORY: Fall. Low SpO2. COMPARISON: 12/03/2016. FINDINGS: The lungs are clear. No focal consolidation or pleural fluid. No pneumothorax. Normal cardiomediastinal silhouette, with normal heart size and pulmonary vascularity. Visualized osseous structures are unremarkable. IMPRESSION: Negative chest. Report Dictated By: Miguel Angel Barrios MD at 10/18/2018 5:25 PM Report E-Signed By: Miguel Angel Barrios MD at 10/18/2018 5:26 PM WSN:[id number]
[2018-10-18 17:30] VITALS: BP 117/62
[2018-10-18] MEDS ORDERED: CEPH500T7 PO (18:20)
[2018-10-18] MEDS ORDERED: PRED20TA6 PO (18:20)
[2018-10-18] MEDS ORDERED: predniSONE 20 MG TAB PO ONE (18:25)
[2018-10-18] MEDS ORDERED: CEPHALEXIN 500 MG CAP TH 2 CAP/BOTTLE PO ONE (18:50)
== END 2018-10-18 19:19 | disposition home or self-care (01) ==
LOC: ER 15:45
DX: S63.501A Unspecified sprain of right wrist, initial encounter (principal); W19.XXXA Unspecified fall, initial encounter; Y92.009 Unspecified place in unspecified non-institutional (private) residence as the place of occurrence of the external cause; Z79.01 Long term (current) use of anticoagulants; Z79.899 Other long term (current) drug therapy
CPT/HCPCS: 71046; 73200; 81001; 85025; 85651; 86140; 96374; 96375; 99284; A4565; J2930; J3010; J7512; 82040; 82247; 82310; 82374; 82435; 82565; 82947; 84075; 84132; 84155; 84295; 84450; 84460; 84520

== ENCOUNTER → 2018-10-22 | Outpatient (CLI) | payer MEDICARE, OTHER ==
[2018-09-26 08:47] VITALS: BMI 39.5
[~2018-10-22] MED LIST changes: +CEPH500T7 PO
== END ==
LOC: RESP 21:02
PROVIDERS: ATTEND Family Medicine
DX: G47.33 Obstructive sleep apnea (adult) (pediatric) (principal); G47.36 Sleep related hypoventilation in conditions classified elsewhere

== ENCOUNTER 2018-11-01 15:37 | Emergency (ER) | payer MEDICARE, OTHER ==
[2018-09-26 08:47] VITALS: Wt 123.4 kg
--- NOTE | 2018-11-01 15:55 | ER Report ---
History and Physical Time Seen By MD: 15:51 Hx. of Stated Complaint: PATIENT REPORTS INCREASED SWELLING IN BILATERAL FEET. HPI/ROS CHIEF COMPLAINT: Bilateral leg and foot swelling HISTORY OF PRESENT ILLNESS: 73-year-old male morbid obesity history of gout recently hospitalized denies ever having a stents placed denies having heart failure comes in with bilateral lower extremity pitting edema which he says is significantly worse the last couple days. Patient has no history of DVTs but does have a history of cerebral vascular occlusions. Patient denies any chest pain shortness of breath nausea vomiting diarrhea fever chills. Patient denies abdominal pain and hematuria dysuria or pyuria. REVIEW OF SYSTEMS: Respiratory: No cough, no dyspnea. Cardiovascular: No chest pain, no palpitations. Gastrointestinal: No vomiting, no abdominal pain. Musculoskeletal: No back pain. Remainder of the 14 system rev: Yes Allergies: Coded Allergies: promethazine (Verified Adverse Reaction, Intermediate, Hallucinations, 10/18/18) pt reported Home Meds Active Scripts Prednisone (PREDNISONE) 20 Mg Tablet, 40 MG PO DAILY for 4 Days, #8 TAB Prov:MOIRA TIJERINA 10/18/18 Cephalexin 500 Mg Tab (KEFLEX 500 MG TAB) 500 Mg Tablet, 500 MG PO Q6H for 7 Days, #28 TAB Prov:MOIRA TIJERINA 10/18/18 Hydrocodone Bit/Acetaminophen (HYDROCODON-ACETAMINOPHEN 5-325) 1 Each Tablet, 1 EACH PO Q6H for 3 Days, #10 TAB Prov:CARRIE MARTIN MD 10/17/18 Celecoxib (Celecoxib) 100 Mg Capsule, 1 CAP PO Q12H PRN for pain, #10 Prov:JOSIANE PINEDA MD 10/07/18 Tamsulosin Hcl (FLOMAX) 0.4 Mg Cap.er.24h, 0.4 MG PO DAILY for 30 Days, #30 CAP Prov:FIDEL ALMONTE MD 09/29/18 Folic Acid (FOLIC ACID) 1 Mg Tablet, 5 MG PO QDAY, #180 TAB 9 Refills Prov:DEBBY BELLO COMIC ILLUSTRATOR-BC, ONC 02/14/17 Reported Medications Warfarin Sodium (COUMADIN) 5 Mg Tablet, 5 MG PO TuSa 10/04/18 Warfarin Sodium (COUMADIN) 2.5 Mg Tablet, 2.5 MG PO SuMoWeThFr 10/04/18 Pyridoxine Hcl (VITAMIN B-6) 50 Mg Capsule, 50 MG PO BID, CAPSULE 10/04/18 Cyanocobalamin (Vitamin B-12) (VITAMIN B-12) 1,000 Mcg Tablet, 1000 MCG PO QDAY 10/04/18 Amiodarone Hcl (PACERONE) 200 Mg Tablet, 200 MG PO DAILY 03/11/14 Metoprolol Succ 200 Mg Xl Tab (METOPROLOL SUCCINATE 200 MG) 200 Mg Tab.er.24h, 1 TAB PO QDAY, TAB 03/11/14 Losartan Potassium (LOSARTAN POTASSIUM) 50 Mg Tablet, 50 MG PO QDAY 03/11/14 Hydrochlorothiazide (HYDROCHLOROTHIAZIDE) 50 Mg Tablet, 1 TAB PO QDAY TAKE ONE TABLET BY MOUTH EVERY DAY 03/11/14 Amlodipine Besylate (AMLODIPINE BESYLATE) 10 Mg Tablet, 1 TAB PO QDAY, TAB TAKE ONE TABLET BY MOUTH EVERY DAY 03/11/14 Reviewed Nurses Notes: Yes Old Medical Records Reviewed: Yes Hx Smoking: No Smoking Status: Never Smoker Exposure to Second Hand Smoke?: Yes (PLAYED IN [employer] FOR 20 YEARS) Hx Substance Use Disorder: No Hx Alcohol Use: Yes (QUIT ) Constitutional Vital Sign - Last 24 Hours 11/01/18 11/01/18 11/01/18 11/01/18 15:43 15:43 15:49 16:00 Temp 97.8 Pulse 69 Resp 24 B/P (MAP) 147/83 147/83 (104) 134/75 (94) Pulse Ox 83 O2 Delivery Room Air O2 Flow Rate 2.0 11/01/18 11/01/18 11/01/18 11/01/18 16:07 16:30 16:37 16:42 Pulse 56 57 Resp 16 7 16 B/P (MAP) 137/78 (97) Pulse Ox 94 92 92 11/01/18 17:00 B/P (MAP) 139/75 (96) Physical Exam General Appearance: The patient is alert, has no immediate need for airway protection and no current signs of toxicity. [ ] Eyes: Pupils equal and round no injection. Respiratory: Chest is non tender, lungs are clear to auscultation. Cardiac: regular rate and rhythm [ ] Gastrointestinal: Abdomen is soft and non tender, no masses, bowel sounds normal. Musculoskeletal: Neck: Neck is supple and non tender. Extremities have full range of motion and are non tender. Skin: No rashes or lesions. Extremities patient has +2+3 pitting edema bilaterally symmetrical to the mid tibial area DIFFERENTIAL DIAGNOSIS: After history and physical exam differential diagnosis was considered for CHF CHF exacerbation diastolic dysfunction pulmonary emboli myocardial infarction inflammatory changes Medical Decision Making Data Points Result Diagram: 11/01/18 1552 11/01/18 1552 Laboratory Hematology Test 11/01/18 15:52 Red Blood Count 4.78 M/uL (4.00-5.60) Mean Corpuscular Volume 95.3 fL (80.0-96.0) Mean Corpuscular Hemoglobin 32.1 pg (26.0-33.0) Mean Corpuscular Hemoglobin Concent 33.7 g/dL (32.0-36.0) Red Cell Distribution Width 14.2 % (11.5-14.5) Mean Platelet Volume 8.2 fL (7.2-11.1) Neutrophils (%) (Auto) 87.2 % (39.4-72.5) Lymphocytes (%) (Auto) 5.7 % (17.6-49.6) Monocytes (%) (Auto) 5.3 % (4.1-12.4) Eosinophils (%) (Auto) 1.2 % (0.4-6.7) Basophils (%) (Auto) 0.6 % (0.3-1.4) Nucleated RBC Relative Count (auto) 0.0 /100WBC Neutrophils # (Auto) 11.8 K/uL (2.0-7.4) Lymphocytes # (Auto) 0.8 K/uL (1.3-3.6) Monocytes # (Auto) 0.7 K/uL (0.3-1.0) Eosinophils # (Auto) 0.2 K/uL (0.0-0.5) Basophils # (Auto) 0.1 K/uL (0.0-0.1) Nucleated RBC Absolute Count (auto) 0.00 K/uL D-Dimer Quantitative (PE/DVT) 1.40 ug/ml (0-0.50) Sodium Level 139 mmol/L (137-145) Potassium Level 4.0 mmol/L (3.5-5.0) Chloride Level 100 mmol/L (98-107) Carbon Dioxide Level 29 mmol/L (22-30) Blood Urea Nitrogen 21 mg/dl (9-21) Creatinine 1.00 mg/dl (0.66-1.25) Glomerular Filtration Rate Calc > 60.0 Random Glucose 133 mg/dl (75-110) Uric Acid 4.3 mg/dl (3.5-8.5) Calcium Level 6.5 mg/dl (8.4-10.2) Total Bilirubin 0.4 mg/dl (0.2-1.3) Aspartate Amino Transf (AST/SGOT) 24 U/L (0-35) Alanine Aminotransferase (ALT/SGPT) 63 U/L (0-56) Alkaline Phosphatase 84 U/L (0-126) Troponin I < 0.012 ng/ml B-Type Natriuretic Peptide 94 pg/ml (0-100) Total Protein 6.7 g/dl (6.3-8.2) Albumin 3.7 g/dl (3.5-5.0) Chemistry Test 11/01/18 15:52 White Blood Count 13.6 k/uL (4.5-11.0) Red Blood Count 4.78 M/uL (4.00-5.60) Hemoglobin 15.4 g/dL (14.0-18.0) Hematocrit 45.6 % (42.0-52.0) Mean Corpuscular Volume 95.3 fL (80.0-96.0) Mean Corpuscular Hemoglobin 32.1 pg (26.0-33.0) Mean Corpuscular Hemoglobin Concent 33.7 g/dL (32.0-36.0) Red Cell Distribution Width 14.2 % (11.5-14.5) Platelet Count 319 K/uL (150-450) Mean Platelet Volume 8.2 fL (7.2-11.1) Neutrophils (%) (Auto) 87.2 % (39.4-72.5) Lymphocytes (%) (Auto) 5.7 % (17.6-49.6) Monocytes (%) (Auto) 5.3 % (4.1-12.4) Eosinophils (%) (Auto) 1.2 % (0.4-6.7) Basophils (%) (Auto) 0.6 % (0.3-1.4) Nucleated RBC Relative Count (auto) 0.0 /100WBC Neutrophils # (Auto) 11.8 K/uL (2.0-7.4) Lymphocytes # (Auto) 0.8 K/uL (1.3-3.6) Monocytes # (Auto) 0.7 K/uL (0.3-1.0) Eosinophils # (Auto) 0.2 K/uL (0.0-0.5) Basophils # (Auto) 0.1 K/uL (0.0-0.1) Nucleated RBC Absolute Count (auto) 0.00 K/uL D-Dimer Quantitative (PE/DVT) 1.40 ug/ml (0-0.50) Glomerular Filtration Rate Calc > 60.0 Uric Acid 4.3 mg/dl (3.5-8.5) Calcium Level 6.5 mg/dl (8.4-10.2) Total Bilirubin 0.4 mg/dl (0.2-1.3) Aspartate Amino Transf (AST/SGOT) 24 U/L (0-35) Alanine Aminotransferase (ALT/SGPT) 63 U/L (0-56) Alkaline Phosphatase 84 U/L (0-126) Troponin I < 0.012 ng/ml B-Type Natriuretic Peptide 94 pg/ml (0-100) Total Protein 6.7 g/dl (6.3-8.2) Albumin 3.7 g/dl (3.5-5.0) Coagulation Test 11/01/18 15:52 D-Dimer Quantitative (PE/DVT) 1.40 ug/ml ED Course/Re-evaluation ED Course ED course 73-year-old male comes of bilateral lower extremity edema CT and gram- negative his echocardiogram confirmed a diastolic mild dysfunction but EF of 55 troponin cardiac markers all negative I believe this is medical noncompliance he is doing his JOO hose and have his feeding ambulate secondary to hypocalcemia because his has not been taking his medicines are talked about that as well patient be discharged diagnosis edema Decision to Disposition Date: Nov 01, 2018 Decision to Disposition Time: 18:03 Depart Departure Latest Vital Signs Vital Signs Date Time Temp Pulse Resp B/P (MAP) Pulse Ox O2 Delivery O2 Flow Rate FiO2 11/01/18 17:00 139/75 (96) 11/01/18 16:42 57 16 92 11/01/18 15:49 2.0 11/01/18 15:43 97.8 Room Air Impression: Primary Impression: Edema Additional Impression: Hypocalcemia Condition: Improved Disposition: HOME OR SELF-CARE Referrals: ROCIO CIFUENTES DO (PCP) 5 Days Patient Instructions: Edema (DC), Hypocalcemia (DC) Problem Qualifiers ELISA LAGUNAS MD Nov 01, 2018 15:55
--- NOTE | 2018-11-01 15:58 | EKG ---
FACILITY: [facility] - [place] PATIENT NAME: MERON GROSS : [id number] MR: [id number] V: [id number] EXAM DATE: ORDERING PHYSICIAN: ELISA LAGUNAS TECHNOLOGIST: DIANNE Armenta Reason : SOB Blood Pressure : / mmHG Vent. Rate : 059 BPM Atrial Rate : 059 BPM P-R Int : 152 ms QRS Dur : 090 ms QT Int : 456 ms P-R-T Axes : 012 042 044 degrees QTc Int : 451 ms Sinus bradycardia Otherwise normal ECG When compared with ECG of 04-OCT-2018 10:48, No significant change was found Confirmed by KATERYNA BARLOW ([id number]) on 11/01/2018 7:07:12 PM Referred By: JANNETH Confirmed By:KATERYNA BARLOW
[2018-11-01 16:06] LABS: PLATELET COUNT, AUTOMATED 319 K/uL (150-450)
--- NOTE | 2018-11-01 16:40 | RADIOLOGY IMAGING REPORT ---
FACILITY: [facility] - [place] PATIENT NAME: Kirill Clancy : 1945 MR: [id number] V: [id number] EXAM DATE: ORDERING PHYSICIAN: ELISA LAGUNAS TECHNOLOGIST: Location: [facility] - [place] Patient: Kirill Clancy : 1945 Visit/Account:[id number] Date of Sevice: 11/01/2018 EXAMINATION: PA and Lateral Chest 11/01/2018 3:48 PM HISTORY: sob COMPARISON: 10/18/2018 FINDINGS: Cardiomediastinal contours: Stable heart size. Aorta is atherosclerotic. Lungs and pleura: No significant change in vascularity. Mild scarring along the lateral aspect of the minor fissure on the right. No focal parenchymal consolidation. Costophrenic angles are sharp. Bones/soft tissues: No acute bony abnormality. IMPRESSION: No acute cardiopulmonary abnormality. Report Dictated By: Silviano Clement MD at 11/01/2018 4:32 PM Report E-Signed By: Silviano Clement MD at 11/01/2018 4:35 PM WSN:[id number]
[2018-11-01 17:00] VITALS: BP 139/75
--- NOTE | 2018-11-01 17:15 | RADIOLOGY IMAGING REPORT ---
[place] [facility] [place]: Kirill Clancy : 1945 MR: [id number] V: [id number] EXAM DATE: ORDERING PHYSICIAN: ELISA LAGUNAS TECHNOLOGIST: [place] [facility] [place] Kirill Clancy : 1945 Visit/Account:[id number] Date of Sevice: 11/01/2018 EXAMINATION: Bilateral lower extremity duplex venous ultrasound COMPARISON: None Available HISTORY: Leg pain and swelling. FINDINGS: Standard bilateral lower extremity Doppler ultrasound with color flow and spectral analysis is performed. The bilateral common femoral, femoral, and popliteal veins are widely patent and compress appropriate ly. The visualized calf veins and the proximal greater saphenous vein are patent. No popliteal fluid collection. IMPRESSION: No evidence of deep venous thrombosis within either lower extremity. Report Dictated By: Phil Vega MD at 11/01/2018 5:07 PM Report E-Signed By: Phil Vega MD at 11/01/2018 5:09 PM WSN:[id number]
--- NOTE | 2018-11-01 17:53 | RADIOLOGY IMAGING REPORT ---
FACILITY: [facility] PATIENT NAME: Kirill Clancy : 1945 MR: [id number] V: [id number] EXAM DATE: ORDERING PHYSICIAN: ELISA LAGUNAS TECHNOLOGIST: Location: [facility] [place] Patient: Kirill Clancy : 1945 Visit/Account:[id number] Date of Sevice: 11/01/2018 EXAMINATION: CTA of the chest with IV contrast HISTORY: Shortness of breath, edema. Elevated d-dimer. TECHNIQUE: Pulmonary embolus protocol - Thin axial CT images of the chest were obtained with IV con trast during maximal pulmonary arterial opacification. Reconstruction of the source data includes mul tiplanar 2D coronal and sagittal reconstructed images, and 3D coronal and sagittal MIP images. Repres entative images have been stored on PACS. One of the following dose optimization techniques was utilized in the performance of this exam: Autom ated exposure control; adjustment of the mA and/or kV according to the patient's size; or use of an i terative reconstruction technique. Specific details can be referenced in the facility's radiology C T exam operational policy. Contrast: 75 mL of IV Isovue-370. COMPARISON: 10/04/2018. FINDINGS: Pulmonary arteries: The pulmonary arteries are well opacified, without suspicious filling defect. Heart, aorta, and great vessels: Normal caliber thoracic aorta, without aneurysm or dissection. Vasc ular calcifications, including coronary artery calcifications. Normal heart size. No pericardial effu abraham. Lungs and pleura: There are a few strands of scarring or linear atelectasis in the mid and lower kristine gs. No new focal consolidation. No pleural effusion or pneumothorax. The central airways are patent. Mediastinum and dimitris: Negative. Visualized upper abdomen: Unremarkable. Chest wall: Negative. Bones: Negative. IMPRESSION: 1. No evidence of pulmonary embolism. 2. No other acute findings in the chest. Report Dictated By: Miguel Angel Barrios MD at 11/01/2018 5:44 PM Report E-Signed By: Miguel Angel Barrios MD at 11/01/2018 5:49 PM WSN:[id number]
[2018-11-01] MEDS ORDERED: IOPAMIDOL 76% 100 ML INFUS BTL 100 ML ONE (17:54)
[2018-11-01] MEDS ORDERED: NS(*) 0.9% 50 ML BAG 50 ML ONE (17:54)
[2018-11-01 19:03] LABS: INR 0.92
== END 2018-11-01 18:14 | disposition home or self-care (01) ==
LOC: ER 15:44
DX: R60.0 Localized edema (principal); E83.51 Hypocalcemia
CPT/HCPCS: 71046; 71275; 83880; 84484; 84550; 85025; 85379; 85610; 85730; 93005; 93970; 99284; J7050; Q9967; 82040; 82247; 82310; 82374; 82435; 82565; 82947; 84075; 84132; 84155; 84295; 84450; 84460; 84520

== ENCOUNTER → 2018-11-26 | Outpatient (CLI) | payer MEDICARE, OTHER ==
[2018-09-26 08:47] VITALS: BMI 39.5
--- NOTE | 2018-11-26 14:37 | RADIOLOGY IMAGING REPORT ---
FACILITY: [facility] PATIENT NAME: Kirill Clancy : 1945 MR: [id number] V: [id number] EXAM DATE: ORDERING PHYSICIAN: ROCIO CIFUENTES TECHNOLOGIST: Location: [facility] - [place] Patient: Kirill Clancy : 1945 Visit/Account:[id number] Date of Sevice: 11/26/2018 Exam type: FOOT 2 VIEW RIGHT History: Bilateral foot and ankle pain and swelling Comparison: Left foot series performed today. Findings: Two views of the right foot demonstrate a mild hallux valgus deformity at the right first metatarsoph alangeal joint. There are multiple subchondral cystic erosions seen along the head of the right firs t metatarsal. There is mild medial soft tissue swelling at the right first metatarsophalangeal joint . Although these changes could be degenerative in nature doubt is a consideration. Mild joint space narrowing seen throughout the interphalangeal joints. IMPRESSION: 1. Mild hallux valgus deformity involving the right first metatarsophalangeal joint Mild soft tissue swelling along the medial aspect of the right first MTP joint Subchondral cystic erosions along the head of the right first metatarsal. These changes could be deg enerative in nature although gout is a consideration Mild joint space narrowing involving the interphalangeal joints Report Dictated By: Yris Murillo MD at 11/26/2018 2:13 PM Report E-Signed By: Yris Murillo MD at 11/26/2018 2:31 PM WSN:[email or web address]
--- NOTE | 2018-11-26 14:39 | RADIOLOGY IMAGING REPORT ---
FACILITY: [facility] - [place] PATIENT NAME: Kirill Clancy : 1945 MR: [id number] V: [id number] EXAM DATE: ORDERING PHYSICIAN: ROCIO CIFUENTES TECHNOLOGIST: Location: [facility] - [place] Patient: Kirill Clancy : 1945 Visit/Account:[id number] Date of Sevice: 11/26/2018 Exam type: FOOT 2 VIEW LEFT History: Bilateral foot pain and swelling Comparison: ] Series performed today. Findings: There is moderate to severe joint space narrowing involving the left first MTP joint. There are nume haja subchondral cystic erosions seen in the adjacent articular surfaces. A large osteophyte project s laterally and posteriorly. Mild degenerative changes throughout the interphalangeal joints are not ed. There are vascular calcifications noted in the adjacent soft tissues Posteriorly IMPRESSION: 1. The appearance of the left first MTP joint is also in keeping with degenerative arthritis Vascular calcifications are present Mild degenerative changes of the IP joints Report Dictated By: Yris Murillo MD at 11/26/2018 2:31 PM Report E-Signed By: Yris Murillo MD at 11/26/2018 2:33 PM WSN:[email or web address]
--- NOTE | 2018-11-26 14:42 | RADIOLOGY IMAGING REPORT ---
[place] [facility] [place] NAME: Kirill Clancy : 1945 MR: [id number] V: [id number] EXAM DATE: ORDERING PHYSICIAN: ROCIO CIFUENTES TECHNOLOGIST: Location: [facility] - [place] Patient: Kirill Clancy : 1945 Visit/Account:[id number] Date of Sevice: 11/26/2018 Exam type: ANKLE 3 VIEW MIN LEFT History: Bilateral foot and ankle pain and swelling Comparison: Right ankle performed today. Findings: Three views were submitted. There is mild to moderate soft tissue spine about the left ankle. There is no evidence of acute fracture or dislocation. Moderate vascular calcifications are seen in the a djacent soft tissues IMPRESSION: 1. Mild to moderate soft tissue spine about the left ankle although no underlying fracture dislocati on Moderate vascular calcifications Report Dictated By: Yris Murillo MD at 11/26/2018 2:34 PM Report E-Signed By: Yris Murillo MD at 11/26/2018 2:36 PM WSN:[email or web address]
--- NOTE | 2018-11-26 14:45 | RADIOLOGY IMAGING REPORT ---
FACILITY: [facility] - [place] PATIENT NAME: Kirill Clancy : 1945 MR: [id number] V: [id number] EXAM DATE: ORDERING PHYSICIAN: ROCIO CIFUENTES TECHNOLOGIST: Location: [facility] [place] Patient: Kirill Clancy : 1945 Visit/Account:[id number] Date of Sevice: 11/26/2018 Exam type: ANKLE 3 VIEW MIN RIGHT History: Bilateral foot and ankle pain and swelling Comparison: Left ankle series performed today. Findings: There is mild to moderate soft tissue swelling about the right ankle. There is no evidence of acute fracture or dislocation. There is mild ossification of the intraosseous membrane distally. Mild vas cular calcifications are present. An ovoid sclerotic density in the distal right fibula likely repre sents a bone island IMPRESSION: 1. Mild proximal soft tissue swelling about the right ankle No evidence of acute fracture dislocation Mild vascular calcifications Report Dictated By: Yris Murillo MD at 11/26/2018 2:36 PM Report E-Signed By: Yris Murillo MD at 11/26/2018 2:37 PM WSN:[email or web address]
== END ==
LOC: RAD 12:55
PROVIDERS: ATTEND Family Medicine
DX: M20.11 Hallux valgus (acquired), right foot (principal); R22.43 Localized swelling, mass and lump, lower limb, bilateral; M25.572 Pain in left ankle and joints of left foot; M25.571 Pain in right ankle and joints of right foot

== ENCOUNTER → 2018-12-17 | Outpatient (REF) | payer MEDICARE, OTHER ==
[2018-09-26 08:47] VITALS: BMI 39.5
[2018-12-17 12:02] LABS: INR 5.43
== END ==
LOC: ZZSENDIN 11:24
PROVIDERS: ATTEND Family Medicine
DX: Z51.81 Encounter for therapeutic drug level monitoring (principal); I48.2 Chronic atrial fibrillation; Z79.01 Long term (current) use of anticoagulants
CPT/HCPCS: 85610